=== PATIENT | female | born 1995 | race Caucasian/White ===

== ENCOUNTER 2020-07-02 16:12 | Outpatient (REF) | payer OTHER, MEDICAID, SELFPAY | END 2020-07-02 16:13 | disposition home or self-care (01) | LOC: HO.LAB 16:12 | PROVIDERS: Visit Provider Internal Medicine | DX: Z20.828 Contact with and (suspected) exposure to other viral communicable diseases (principal) | CPT/HCPCS: C9803; U0003 ==

== ENCOUNTER 2021-01-24 01:22 | Emergency (ER) | payer OTHER, SELFPAY ==
[2021-01-24 01:32] VITALS: BP 113/73; PULSE 110; RESP 18; TEMP 36.7; O2SAT 98; BMI 27.4
--- NOTE | 2021-01-24 01:43 | ED.URI ---
HPI - URI/Sore Throat General Chief Complaint: Upper Respiratory Symptoms Stated Complaint: flu like symptoms, ear pain for about week Time Seen by Provider: 01/24/21 01:28 Source: patient Mode of arrival: ambulatory Limitations: no limitations History of Present Illness MD elicited complaint: cough, sore throat, nasal congestion and sinus pain Pertinent past history: asthma Onset (ago): week(s) (1) Consistency: constant Severity: mild Able to tolerate fluids by mouth: Yes Exacerbating factors: swallowing Relieving factors: nothing Associated symptoms: chills, nasal congestion, sore throat and cough Treatments prior to arrival: none Related Data Previous Rx's Medication Instructions Recorded amoxicillin 500 mg PO BID 7 Days #14 cap 01/24/21 Allergies Allergy/AdvReac Type Severity Reaction Status Date / Time No Known Allergies Allergy Verified 01/24/21 01:42 Review of Systems Review of Systems: Constitutional : No Fever, No Chills ENT/Mouth : No Hoarseness, pos sore throat, No Rhinorrhea, pos nasal congestion Eyes: No Redness, No Discharge, No Vision Changes Cardiovascular : No Chest Pain, positive SOB, positive Dyspnea on Exertion, No Edema Respiratory : positive Cough, No Sputum, no Wheezing Gastrointestinal : No Nausea, No Vomiting, No Diarrhea, No abdominal Pain Genitourinary : No Dysuria, No Hematuria Musculoskeletal : No joint pain, No Myalgias Skin : No rash Neuro : No Weakness, No Numbness, No Headache Psych : No anxiety, depression Heme/Lymph: No Bruising, No Bleeding Endocrine : No Polyuria, No Polydipsia All other systems reviewed and are negative [facility] Past Medical History Attestation statement: The following information was validated with the patient. Medical History Asthma No known health problems Social History Social History (Updated 01/24/21 @ 02:06 by Jamee Gann DO) Patient Tobacco Use Status: Never used Tobacco Use of substances other than those prescribed or required for medical reasons: No Advance Directives: No Advance Directives Information Provided: No Patient : Yes Physical Exam Vital Signs: Vital Signs: Last Vital Signs Temp 98.3 F 01/24/21 02:00 Pulse 94 01/24/21 02:00 Resp 16 01/24/21 02:00 BP 114/70 01/24/21 02:00 Pulse Ox 98 01/24/21 02:00 Body Mass Index 27.4 Appearance: Alert. Oriented X3. No acute distress. Eyes: Pupils equal, round and reactive to light. ENT: Pharynx mild generalized erythema, nasal congestion, bilateral maxillary sinus ttp Neck: Normal inspection. Neck supple. CVS: Normal heart rate and rhythm. Pulses normal. Respiratory: No respiratory distress. Breath sounds slightly diminished throughout Abdomen: Soft and nontender. Skin: Skin warm and dry. Normal skin color. Normal skin turgor. Extremities: No lower extremity edema. No calf ttp Neuro: Oriented X 3. No motor deficit. No sensory deficit. MDM - URI/Sore Throat MDM Narrative Medical decision making narrative: 25 yo female hx of asthma remotely she is 31 weeks has no complaints but has URI symptoms, likely sinusitis, COVID/strep ordered, INH given prior hx of asthma and she is slightly diminished, discussed symptom control with tylenol/benadryl, PO amoxicillin and INH for home use Lab Data Labs: Lab Results 01/24/21 01/24/21 Range/Units 01:55 01:55 COVID-19 (MERY) Negative (Negative) COVID-19 Clin Com See Note S. pyogenes GrpA BENJI Negative (Negative) Discharge Plan Discharge Clinical Impression: Upper respiratory infection Qualifiers: URI type: unspecified viral URI Qualified Code(s): J06.9 - Acute upper respiratory infection, unspecified Sinusitis Qualifiers: Sinusitis location: maxillary Chronicity: acute Recurrence: non-recurrent Qualified Code(s): J01.00 - Acute maxillary sinusitis, unspecified Patient Disposition: Home, Self-Care Instructions: Sinusitis (ED), Upper Respiratory Infection (ED) Additional Instructions: return to ED for any worsening symptoms or concerns tylenol and benadryl are safe in YOU CAN USE THE INHALER 2 PUFFS EVERY 4 HOURS NEEDED FOR COUGH OR WHEEZING NEGATIVE FOR COVID Prescriptions: New amoxicillin 500 mg capsule 500 mg PO BID 7 Days Qty: 14 RF: 0 Referrals: Physician,None [Primary Care Provider] - 2 days (if not better) Stand Alone Forms: Work/School Release
[2021-01-24 02:00] VITALS: BP 114/70; PULSE 94; RESP 16; TEMP 36.8; O2SAT 98
[2021-01-24] MEDS: Albuterol Sulfate 90 MCG 8 GM INHALER 2 PUFF INHALE (02:06)
[2021-01-24] MEDS: Amoxicillin 500 MG CAPSULE PO (02:07)
[2021-01-24 02:08] LABS: IDNOW Serial# 9DD0AD1C; Strep A Nucleic Acid Negative (Negative)
[2021-01-24 02:17] LABS: COVID-19 Test Negative (Negative)
== END 2021-01-24 02:29 | disposition home or self-care (01) ==
PROVIDERS: Emergency Provider Emergency Medicine
DX: J01.00 Acute maxillary sinusitis, unspecified (principal); R05 Cough; Z20.822 Contact with and (suspected) exposure to COVID-19
CPT/HCPCS: 36415; 87635; 87651; 99283

== ENCOUNTER 2021-03-24 13:42 | Emergency (ER) | payer OTHER, SELFPAY ==
[2021-03-24 14:41] VITALS: BP 121/81; PULSE 109; RESP 18; TEMP 37; O2SAT 99; BMI 27.9
[2021-03-24 14:58] LABS: COVID-19 Test Positive (Negative); IDNOW Serial# 9DD0AD1C
--- NOTE | 2021-03-24 16:26 | ED.URI ---
HPI - URI/Sore Throat General Chief Complaint: Upper Respiratory Symptoms Stated Complaint: SORE THROAT Time Seen by Provider: 03/24/21 15:50 Source: patient Mode of arrival: ambulatory Limitations: no limitations History of Present Illness HPI Narrative: 25 y/o who is 40 w 1d presents to the ER with sore throat that started 2 days ago as well as some mild body aches, nasal congestion, and SOB that started today. She feels like she has a sinus infection as she has had them before. She had some left upper chest pain when she was sneezing earlier but none now. She is not coughing, has no fever, chills, N/V/D. She was around her mother last week who just tested positive for COVID-19. MD elicited complaint: sore throat, nasal congestion and sinus pain Onset (ago): day(s) (2) Consistency: intermittent Severity: mild Pain scale (0-10): 3 Description of mucous: clear Able to tolerate fluids by mouth: Yes Exacerbating factors: nothing Relieving factors: nothing Context: sick contacts Associated symptoms: denies other symptoms Treatments prior to arrival: none Related Data Previous Rx's Medication Instructions Recorded amoxicillin 500 mg capsule 500 mg PO BID 7 Days #14 cap 01/24/21 Allergies Allergy/AdvReac Type Severity Reaction Status Date / Time No Known Allergies Allergy Verified 01/24/21 01:42 Review of Systems Review of Systems: Constitutional: No Fever, No Chills ENT/Mouth: + sore throat, + Rhinorrhea, No Swallowing Difficulty Eyes: No Eye Pain, No Swelling, No Redness Cardiovascular: + Chest Pain, + SOB, No Orthopnea, No Edema Respiratory: No Cough, No Sputum, No Wheezing, No dyspnea Gastrointestinal: No Nausea, No Vomiting, No Diarrhea, No abdominal Pain, No Hematochezia, No Melena Genitourinary: No Dysuria, No Urinary Frequency, No Hematuria Musculoskeletal: No joint pain, + Myalgias Skin: No Skin Lesions, No rash Neuro: No Weakness, No Numbness, No Dizziness, + Headache Psych: + Anxiety/Panic, No Depression Heme/Lymph: No Bruising, No Lymphadenopathy Endocrine: No Polyuria, No Polydipsia PMFSH Past Medical History Medical History Asthma No known health problems Social History Social History (Updated 01/24/21 @ 02:06 by Jamee Gann DO) Patient Tobacco Use Status: Never used Tobacco Advance Directives: Yes Advance Directives Information Provided: No Advance Directives on File: No Physical Exam Vital Signs: Vital Signs: Last Vital Signs Temp 98.6 F 03/24/21 14:41 Pulse 109 H 03/24/21 14:41 Resp 18 03/24/21 14:41 BP 121/81 03/24/21 14:41 Pulse Ox 99 03/24/21 14:41 Body Mass Index 27.9 Appearance: Alert. Oriented X3. No acute distress. Eyes: Pupils equal, round and reactive to light. ENT: Pharynx normal. Neck: Normal inspection. Neck supple. CVS: Tachycardic, regular rate and rhythm. Pulses normal. Respiratory: No respiratory distress. Breath sounds normal. Abdomen: Gravid uterus to level of the ribs, non-tender +BS x4 Skin: Skin warm and dry. Normal skin color. Normal skin turgor. No rashes. Extremities: No lower extremity edema. No calf tenderness Neuro: Oriented X 3. No motor deficit. No sensory deficit. Course Course Course Narrative: 25 y/o 40 week female presenting with URI symptoms in the setting of known COVIDF exposure. She is slightly tachcardic on arrival HR 109. SPO2 99-100% no difficulty breathing or SOB. She appears well. She has no chest pains. She is COVID Positive. Spoke to her OB on from [place] on the phone in the room with the patient. Induction was tentatively planned for . If she is feeling better tomorrow they will move it up. She remained with SpO2 100% with ambulation here. Not concerned about the tachycardia as she is not sustaining above 120. Doubt PE at this time. She is stable for discharge home with close OB follow up. She agrees with plan. MDM - URI/Sore Throat Lab Data Labs: Lab Results 03/24/21 Range/Units 14:46 COVID-19 (MERY) Positive A (Negative) COVID-19 Clin Com See Note Discharge Plan Discharge Clinical Impression: COVID Patient Disposition: Home, Self-Care Instructions: COVID-19 (Coronavirus Disease 2019) (ED) Additional Instructions: You were found to be COVID-19 POSITIVE today. Your exam & oxygen levels were normal. Rest. Drink plenty of fluids. Do not go out in public for the next 10 days (except to delivery your baby!) Take over the Tylenol as needed. Follow up with your doctor this week. If you shortness of breath worsens , if you develop difficulty breathing or any other concerning symptom call 911 or go to [facility] ER right away for further evaluation. Prescriptions: No Action amoxicillin 500 mg capsule 500 mg PO BID 7 Days Qty: 14 RF: 0
[2021-03-24 16:40] VITALS: BP 129/87; PULSE 95; RESP 18; TEMP 36.9; O2SAT 100
== END 2021-03-24 16:47 | disposition home or self-care (01) ==
PROVIDERS: Emergency Provider Emergency Medicine
DX: O98.513 Other viral diseases complicating pregnancy, third trimester (principal); U07.1 COVID-19; Z3A.40 40 weeks gestation of pregnancy
CPT/HCPCS: 36415; 87635; 99283

== ENCOUNTER 2021-04-05 00:43 | Emergency (ER) | payer OTHER, SELFPAY ==
--- NOTE | ~2021-04-05 | XR_ITS ---
EXAMINATION: XR CHEST CLINICAL INFORMATION: Cough, Covid positive COMPARISON: None TECHNIQUE: Frontal view of the chest was obtained. FINDINGS: Lung volumes are symmetric. Mild patchy bibasilar opacities are noted. No evidence of pneumothorax or pleural effusion. The cardiomediastinal contour is unremarkable. No acute osseous findings are seen. XR/XR chest 1V IMPRESSION: Mild patchy bibasilar opacities suspicious for sequelae of Covid infection.
[2021-04-05 01:25] VITALS: BP 141/91; PULSE 85; RESP 18; TEMP 36.5; O2SAT 100; BMI 26.6
--- NOTE | 2021-04-05 02:20 | ED.GENADULT ---
HPI - General Adult General Chief complaint: General Medical Stated complaint: Cough/Sob/Chest tightness Time Seen by Provider: 04/05/21 02:20 Source: patient Mode of arrival: ambulatory Limitations: no limitations History of Present Illness HPI narrative: Patient COVID positive since 03/24 complaining of chest tightness shortness of breath saturating 100% on room air also complaining of right lower 3rd molar toothache with history of cavities no loss of taste sensation no chest pain Related Data Previous Rx's Medication Instructions Recorded amoxicillin 500 mg capsule 500 mg PO BID 7 Days #14 cap 01/24/21 amoxicillin 875 mg-potassium 1 tab PO BID #20 tab 04/05/21 clavulanate 125 mg tablet (Augmentin) dexamethasone 6 mg tablet 6 mg PO DAILY #7 tab 04/05/21 (Decadron) Allergies Allergy/AdvReac Type Severity Reaction Status Date / Time No Known Allergies Allergy Verified 01/24/21 01:42 Review of Systems Review of Systems: Yes all other systems are reviewed and are negative PMFSH Past Medical History Medical History Asthma No known health problems Social History Social History Patient Tobacco Use Status: Never used Tobacco Advance Directives: No Patient : No ( DELIVERED ON 03/30) Physical Exam Vital Signs: Vital Signs: Last Vital Signs Temp 97.7 F 04/05/21 01:25 Pulse 85 04/05/21 01:25 Resp 18 04/05/21 01:25 BP 141/91 H 04/05/21 01:25 Pulse Ox 100 04/05/21 01:25 Body Mass Index 26.6 Appearance: Alert. Oriented X3. No acute distress. Eyes: PERRLA, No Nystagmus ENT: Pharynx normal. Oral Mucosa moist dental fillings with tenderness right lower 3rd molar Neck: Normal inspection. Neck supple. CVS: Normal heart rate and rhythm. Pulses normal. Respiratory: No respiratory distress. Equal air entry bilateral, no wheezing/rales/rhonchi Abdomen: Soft and nontender. Bowel sounds are present, no mass palpable, Skin: Skin warm and dry. Normal skin color. Normal skin turgor. Extremities: No lower extremity edema. No calf tenderness Neuro: Oriented X 3. Medical Decision Making MDM Narrative Medical decision making narrative: Patient chest x-ray showed diffuse infiltrate right lower lobe will start on Decadron will give Augmentin for tooth infection. Advised to follow with PCP patient is saturating 100% on room air Discharge Plan Discharge Clinical Impression: COVID, Dental caries Patient Disposition: Home, Self-Care Instructions: Toothache (ED), COVID-19 (Coronavirus Disease 2019) (ED) Additional Instructions: Social distancing as advised Antibiotic and Decadron as prescribed Report to the ER if increased shortness of breath Prescriptions: New dexamethasone [Decadron] 6 mg tablet 6 mg PO DAILY Qty: 7 RF: 0 amoxicillin-pot clavulanate [Augmentin] 875-125 mg tablet 1 tab PO BID Qty: 20 RF: 0 No Action amoxicillin 500 mg capsule 500 mg PO BID 7 Days Qty: 14 RF: 0
[2021-04-05] MEDS: Amoxicillin/Potassium Clav 875 MG TABLET PO (02:42)
[2021-04-05] MEDS: traMADoL HCL 50 MG TABLET PO (02:42)
[2021-04-05] MEDS: dexAMETHasone 6 MG TABLET PO (03:27)
== END 2021-04-05 03:30 | disposition home or self-care (01) ==
PROVIDERS: Emergency Provider Internal Medicine
DX: U07.1 COVID-19 (principal); K02.9 Dental caries, unspecified; R05 Cough; Z79.899 Other long term (current) drug therapy
CPT/HCPCS: 71045; 99283; J8540

== ENCOUNTER 2022-06-25 22:02 | Emergency (ER) | payer OTHER, SELFPAY ==
[2022-06-25 22:09] VITALS: BP 119/71; PULSE 109; RESP 20; TEMP 37.1; O2SAT 99; BMI 26.9
[2022-06-25 22:44] LABS: Strep A Nucleic Acid Negative (Negative)
[2022-06-25 23:15] LABS: Influenza A PCR POSITIVE (Negative); Influenza B PCR NEGATIVE (Negative); Resp Syncy Virus RNA Qual PCR NEGATIVE (Negative); SARS COV2 PCR INHOUSE NEGATIVE (Negative)
--- NOTE | 2022-06-25 23:26 | ED.URI ---
HPI - URI/Sore Throat General Chief Complaint: Upper Respiratory Symptoms Stated Complaint: Cough, Diff breathing, / rib pain Time Seen by Provider: 06/25/22 22:42 History of Present Illness HPI Narrative: Patient is a 26-year-old female presents today with coughing congestion upper respiratory symptoms has been ongoing for about 3 days. Positive generalized malaise. Positive headache. Positive sore throat. Patient thinks she is unsure how far no abdominal pain. Related Data Previous Rx's Medication Instructions Recorded amoxicillin 500 mg capsule 500 mg PO BID 7 days #14 caps 01/24/21 amoxicillin 875 mg-potassium 1 tab PO BID #20 tabs 04/05/21 clavulanate 125 mg tablet (Augmentin) dexamethasone 6 mg tablet 6 mg PO DAILY #7 tabs 04/05/21 (Decadron) Allergies Allergy/AdvReac Type Severity Reaction Status Date / Time No Known Allergies Allergy Verified 01/24/21 01:42 Review of Systems Review of Systems: Positive coughing congestion upper respiratory symptoms Positive generalized malaise No abdominal Yes all other systems are reviewed and are negative [facility] Past Medical History Attestation statement: The following information was validated with the patient. Medical History Asthma No known health problems Social History Social History Patient Tobacco Use Status: Never used Tobacco Advance Directives: No Advance Directives Information Provided: No Physical Exam Vital Signs: Vital Signs: Last Vital Signs Temp 98.8 F 06/25/22 22:09 Pulse 109 H 06/25/22 22:09 Resp 20 06/25/22 22:09 BP 119/71 06/25/22 22:09 Pulse Ox 99 06/25/22 22:09 O2 Del Method 06/25/22 22:09 BMI result Body Mass Index 26.9 Appearance: Alert. Oriented X3. No acute distress. Eyes: Pupils equal, round and reactive to light. ENT: Pharynx normal. Neck: Normal inspection. Neck supple. No lymph nodes noted. No crepitus CVS: Normal heart rate and rhythm. Pulses normal. Normal S1 and S2 Respiratory: No respiratory distress. Breath sounds normal. No Wheezing. No rales Abdomen: Soft and nontender. No rigidity. No distention. good BS x4 Skin: Skin warm and dry. Normal skin color. Normal skin turgor. Extremities: No lower extremity edema. Neurovascular intact to all extremities. No Lacerations. No Rash Neuro: Oriented X 3. No motor deficit. No sensory deficit. Moving all extermities. No slurred speech Medical Decision Making Medical Decision Making MDM Narrative: Well-appearing O2 sat 98% on air. Flu positive. Likely the cause of patient's symptoms. Will have patient drink lots of fluids. Given symptoms greater than 48 hours does not think Tamiflu would help. Will discharge patient home. No abdominal pain. Patient will need further workup for her possible . Differential Diagnoses: Differential diagnosis (Flu COVID RSV, other viral illness) Consideration of admission/observation: Consideration of Admission/Observation (No need to admit as patient's O2 sat 98% on room air) Lab Attestation: I reviewed the patient's lab results. (Flu is positive) Tests considered but not performed: Tests Considered But Not Performed (No need for chest x-rays patient's O2 sats normal) Prescription medication was considered but ultimately not given after discussion with patient/family. (e.g., pain medication, antiviral, antibiotic): Prescriptions considered but not given (No need for Tamiflu as patient had symptoms for 3 days) Discharge Plan Discharge Clinical Impression: Influenza Patient Disposition: Home, Self-Care Instructions: Influenza (ED) Prescriptions: No Action amoxicillin 500 mg capsule 500 mg PO BID 7 Days Qty: 14 0RF dexamethasone [Decadron] 6 mg tablet 6 mg PO DAILY Qty: 7 0RF amoxicillin-pot clavulanate [Augmentin] 875-125 mg tablet 1 tab PO BID Qty: 20 0RF Referrals: Physician,Unknown J [Primary Care Provider] - (Please drink a lot of fluids. Tylenol for fever. Close follow-up with your doctor for your influenza and your possible )
== END 2022-06-26 00:32 | disposition home or self-care (01) ==
PROVIDERS: Emergency Provider Emergency Medicine Emergency Medical Services
DX: J10.1 Influenza due to other identified influenza virus with other respiratory manifestations (principal); R05.9 Cough, unspecified; R06.02 Shortness of breath; R07.81 Pleurodynia; Z20.822 Contact with and (suspected) exposure to COVID-19; Z79.899 Other long term (current) drug therapy
CPT/HCPCS: 0241U; 36415; 87651; 99282; 99283

== ENCOUNTER 2024-01-11 11:41 | Emergency (ER) | payer OTHER, SELFPAY ==
--- NOTE | ~2024-01-11 | XR_ITS ---
EXAMINATION: XR LUMBOSACRAL SPINE CLINICAL INFORMATION: Low back pain COMPARISON: None available. TECHNIQUE: Three views of the lumbosacral spine. FINDINGS: Mild disc space narrowing and slight retrolisthesis at L4-L5. No acute fracture. Normal lumbar lordosis. Slight scoliotic positioning. XR/XR lumbar spine 2-3V IMPRESSION: Mild L4-L5 disc space narrowing and slight retrolisthesis. No acute fracture.
[2024-01-11 11:53] VITALS: BP 132/95; PULSE 100; RESP 20; TEMP 36.6; O2SAT 100; BMI 28.4
--- NOTE | 2024-01-11 11:54 | ED.GENADULT ---
HPI - General Adult General Chief complaint: Back Pain/Injury Stated complaint: Lower back pain radiating to legs Time Seen by Provider: 01/11/24 13:12 Source: patient, RN notes reviewed and old records reviewed Mode of arrival: ambulatory Limitations: no limitations History of Present Illness ED Provider: LAYLA MARKS PA-C HPI narrative: 28 year old female with pmhx significant for siatica presents to the ED today for evaluation of acute on chronic low back pain x weeks. Reports previously being diagnosed with sciatica and has been seeing a chiropractor for this. Yesterday while driving in the car, reports worsening low back pain. Pain now radiating down bilateral lower extremities. Pain is worse with movement. She has been taking Tylenol at home with minimal relief, prompting her to come to the ED today. Requesting note for work. Denies saddle anesthesia, bowel or bladder incontinence or retention, numbness/tingling/weakness of the lower extremities, fever, chills, dysuria, hematuria. Denies trauma or injury. Denies history of spinal surgeries. Denies history of IV drug use. Related Data Previous Rx's ?Medication ?Instructions ?Recorded amoxicillin 500 mg capsule 500 mg PO BID 7 days #14 caps 01/24/21 amoxicillin 875 mg-potassium 1 tab PO BID #20 tabs 04/05/21 clavulanate 125 mg tablet (Augmentin) dexamethasone 6 mg tablet 6 mg PO DAILY #7 tabs 04/05/21 (Decadron) cyclobenzaprine 5 mg tablet 5 mg PO Q8H #10 tabs 01/11/24 lidocaine 5 % topical patch 1 patch topical DAILY #15 ea 01/11/24 (Lidoderm) naproxen 500 mg tablet 500 mg PO Q8-12H PRN pain (scale 01/11/24 score 1-3) #20 tabs Allergies Allergy/AdvReac Type Severity Reaction Status Date / Time No Known Allergies Allergy Verified 01/11/24 11:56 Review of Systems Review of Systems: Constitutional: No fever, chills, fatigue, night sweats, weight changes ENT/Mouth: No ear pain, hearing loss, nasal congestion, sinus pain, rhinorrhea, sore throat Eyes: No eye pain, swelling, redness, vision changes, discharge Cardio: No chest pain, palpitations, PINEDA, orthopnea, peripheral edema Pulm: No SOB, cough, sputum, wheezing, dyspnea, hemoptysis GI: No nausea, vomiting, hematemesis, abdominal pain, diarrhea, constipation, hematochezia, melena : No irregular bleeding, dysuria, frequency, urgency, hesitancy, hematuria, flank pain, urinary flow changes, urinary incontinence or retention MSK: +back pain, No neck pain, joint pain, myalgias Skin: No lesions, rashes Neuro: No weakness, numbness, paresthesias, LOC, dizziness, headache All other systems reviewed and are negative. [facility] [place] Past Medical History Attestation statement: The following information was validated with the patient. Source: old records reviewed and nursing notes reviewed Medical History Asthma No known health problems Social History Social History Patient Tobacco Use Status: Never used Tobacco Advance Directives: No Do you have a plan to hurt others: No Plan Patient : No Physical Exam ED Vital Signs: Vital Signs - 24 hr 01/11/24 11:53 Temperature 97.8 F Pulse Rate 100 Respiratory Rate 20 Blood Pressure 132/95 H Pulse Oximetry 100 Oxygen Delivery Method Room Air BMI result Body Mass Index 28.4 Patient is slightly hypertensive, vitals otherwise WNL Const General: cooperative, healthy appearing, comfortable and no acute distress Orientation/consciousness: patient oriented x3 Limitations: no limitations [facility] Head: Yes normal to inspection, Yes No palpable skull fracture present, Yes normocephalic and Yes atraumatic Eyes General: appearance normal, both eyes and all related structures Pupils: Equal, round and reactive pupils present EOM: EOMs intact bilaterally Neck Other: No cervical midline spinous tenderness or step-off deformity Neck: Yes normal visual inspection, Yes full ROM and Yes no meningeal signs Chest Chest palpation & inspection: normal inspection of the chest and normal palpation of entire chest wall Resp Effort & Inspection: normal respiratory effort and able to speak in complete sentences Auscultation: clear to auscultation bilaterally Cardio Rate: regular rate Rhythm: regular rhythm GI Inspection: Yes normal to inspection Palpation (GI): Soft to palpation and nontender General: Yes no CVA tenderness Back/Spine/Pelvis Other: No midline spinous tenderness or step-off deformity. No paraspinal muscle tenderness to palpation. No palpable mass, warmth, fluctuance. Back: no CVA tenderness Skin General skin exam: no rashes or lesions noted Neuro Other: Strength 5/5 intact throughout.? No saddle anesthesia.? Sensation intact to light touch.? Neurovascular intact distally.?2+ Patellar tendon DTRs intact bilaterally General: patient oriented x3, gait normal and no meningeal signs Cranial nerves: Yes Equal, round and reactive pupils present Gait exam (Neuro): Normal gait present Extrem General: Yes normal to inspection Course Course Course Narrative: This is a rapid medical exam performed by Francy Calix NP: Additional HPI, ROS, PE not included below will be deferred to primary provider. Patient is a 28-year-old female presenting to the ED with complaint of severe lower back pain radiating down both legs. Has been diagnosed with sciatica previously. Denies saddle anesthesia or bowel/bladder incontinence, fever. Denies fall or other trauma. Plan: Upreg, xray Reevaluation(s) Reevaluation #1: 1413-- urine negative for infection or . No blood. No concern for urinary tract infection or possible renal colic. X-ray lumbar spine shows mild L4-L5 disc space narrowing with slight retrolisthesis without acute fracture. I did discuss these results with patient. She has been treated with Toradol and lidocaine patch in the ED today. Advised PCP follow-up as she will likely require physical therapy. Will also provide her with neuro/spine referral. Patient has remained stable throughout ED visit today. Discussed worrisome signs and symptoms and when to return to the ED. All questions answered at this time. Patient is agreeable with disposition and stable for discharge. Medications Administered Discontinued Medications Generic Name Dose Route Start Last Admin Trade Name Freq PRN Reason Stop Dose Admin Ketorolac Tromethamine 30 mg 01/11/24 14:03 01/11/24 14:11 Ketorolac Tromethamine 30 Mg/Ml Vial IM 01/11/24 14:04 30 mg ONCE ONE Administration Lidocaine 1 patch 01/11/24 14:03 01/11/24 14:10 Lidocaine 4 % Patch Adh..Patch TRANSDERMA 01/11/24 14:04 1 patch ONCE ONE Administration Protocol Medical Decision Making Medical Decision Making MDM Narrative: 28 year old female with pmhx significant for siatica presents to the ED today for evaluation of acute on chronic low back pain x weeks. Patient is slightly hypertensive to 132/95, vitals otherwise WNL. Afebrile. She is nontoxic-appearing and in no acute distress. On exam, no midline spinous tenderness or step-off deformity. No paraspinal muscle tenderness to palpation. No palpable spasm, mass, warmth. Sensation intact to light touch throughout. 2+ patellar tendon DTRs bilaterally. Ambulating with steady gait. Neurovascularly intact distally. No CVAT bilaterally. Skin warm, dry, intact. Differential diagnosis includes MSK sprain, MSK strain, fracture, subluxation, disc herniation, sciatica, contusion. Lower suspicion for nephrolithiasis, urinary tract infection, renal colic. Unlikely cord compression, cauda equina, Guillain-Dalton, epidural abscess. Plan for imaging, UA, u preg, pain control, and re-evaluation. Differential Diagnosis Differential Diagnoses: The differential diagnosis associated with the presentation includes as above Admission/Observation Not indicated. Lab Data MDM Lab Attestation statement: I reviewed the patient's lab results. as above. Labs: Lab Results 01/11/24 01/11/24 Range/Units 13:38 13:39 Urine Color Yellow Urine Appearance Clear Urine pH 6.0 (5.0-9.0) Ur Specific [place] >= 1.030 H (1.005-1.025) Urine Protein Trace (Neg-Trace) mg/dL Urine Glucose (UA) Negative (Negative) mg/dL Urine Ketones Negative (Negative) mg/dL Urine Blood Negative (Negative) Urine Nitrite Negative (Negative) Ur Leukocyte Esterase Negative (Negative) Urine Test NEGATIVE (NEGATIVE) Independent Interpretation I performed an independent interpretation of an: Plain X-Ray Interpretation: X-ray lumbar spine without acute fracture, agree with radiologist's interpretation. Radiology Impression Discussion of test interpretation with radiology: I have reviewed the radiologist's reading. Radiologist Impression: EXAMINATION: XR LUMBOSACRAL SPINE CLINICAL INFORMATION: Low back pain COMPARISON: None available. TECHNIQUE: Three views of the lumbosacral spine. FINDINGS: Mild disc space narrowing and slight retrolisthesis at L4-L5. No acute fracture. Normal lumbar lordosis. Slight scoliotic positioning. XR/XR lumbar spine 2-3V IMPRESSION: Mild L4-L5 disc space narrowing and slight retrolisthesis. No acute fracture. External Record Review External record reviewed: Inpatient record Prescription Management I considered prescription management with: Pain Medication (Naproxen) and Other (Flexeril, lidocaine patch) Chronic Conditions Patient?s care impacted by: Other (Chronic back pain) Social Determinants Patient?s care significantly limited by Social Determinants of Health including: Other Social Determinant of Health Critical Care Time Critical Care Time Critical Care Time: No Discharge Plan Discharge Clinical Impression: Retrolisthesis of vertebrae Patient Disposition: Home, Self-Care Instructions: Lower Back Exercises (ED), Spondylolisthesis (ED) Additional Instructions: Your urine is negative for infection and . As discussed, xray of your lumbar spine shows slight retrolisthesis however there is no acute fracture. Please follow up with PCP as you may require physical therapy referral. You may also refer to low back exercises attached to your discharge paper work. Avoid bending, lifting, or twisting. Use ice several times per day for 20 minutes at a time for the next 48 hours and then change to heat. Flexeril is a muscle relaxer. Take this at night as it makes you drowsy. Do not drive, drink alcohol, or operate machinery while taking it. Naproxen is an anti-inflammatory / pain medication. Take with food. Do not take this with Ibuprofen. Lidoderm patches are numbing patches. Apply to painful areas. In addition you may take Tylenol at home. If your pain worsens, if you develop new numbness, tingling, weakness, loss of bowel or bladder function call 911 or return to the ER immediately for evaluation. Prescriptions: New cyclobenzaprine 5 mg tablet 5 mg PO Q8H Qty: 10 0RF naproxen 500 mg tablet 500 mg PO Q8-12H PRN (Reason: pain (scale score 1-3)) Qty: 20 0RF lidocaine [Lidoderm] 5 % adhesive patch,medicated 1 patch topical DAILY Qty: 15 0RF Rx Instructions: leave on most painful area for up to 12 hrs No Action amoxicillin 500 mg capsule 500 mg PO BID 7 Days Qty: 14 0RF dexamethasone [Decadron] 6 mg tablet 6 mg PO DAILY Qty: 7 0RF amoxicillin-pot clavulanate [Augmentin] 875-125 mg tablet 1 tab PO BID Qty: 20 0RF Referrals: [facility] [place] Group] [facility] [Provider Group] Stand Alone Forms: Work/School Release Print Language: Malawian
[2024-01-11 13:49] LABS: Appearance Urine Clear; Color Urine Yellow; Glucose Urine UA Negative (Negative); Leukocyte Esterase Urine Negative (Negative); Nitrite Urine Negative (Negative); Specific Gravity - Urine >= 1.030 (1.005-1.025); Urine Blood Negative (Negative); Urine Ketones Negative (Negative); Urine Protein Trace mg/dL (Neg-Trace)
[2024-01-11 13:51] LABS: UPreg QC Valid YES; Urine Pregnancy NEGATIVE (NEGATIVE)
[2024-01-11] MEDS: Lidocaine 4 % Patch ADH..PATCH 1 PATCH TRANSDERMA (14:10)
[2024-01-11] MEDS: Ketorolac Tromethamine 30 MG/ML VIAL IM (14:11)
== END 2024-01-11 14:21 | disposition home or self-care (01) ==
PROVIDERS: Physician Assistant Medical; Registered Nurse Emergency; Emergency Provider Emergency Medicine
DX: M43.16 Spondylolisthesis, lumbar region (principal); G89.29 Other chronic pain; M54.50 Low back pain, unspecified
CPT/HCPCS: 72100; 81003; 81025; 96372; 99283; 99284; J1885

== ENCOUNTER 2024-04-01 00:27 | Emergency (ER) | payer OTHER, SELFPAY ==
[2024-04-01 00:31] VITALS: BP 120/84; PULSE 89; RESP 20; TEMP 36.6; O2SAT 98; BMI 28.0
[2024-04-01 00:42] LABS: MANUAL DIFF FLAG NO
[2024-04-01 00:43] LABS: Basophils Absolute Auto 0.1 X10*3/uL (0.0-0.2); Basophils Percent Auto 0.7 % (0-2); Eosinophils Absolute Auto 0.3 X10*3/uL (0.0-0.4); Eosinophils Percent Auto 3.6 % (0-4); Hematocrit 32.8 % (37.0-47.0); Hemoglobin 10.2 g/dl (12.0-16.0); Imm Gran Abs Auto 0.01 X10*3/uL (0.00-0.03); Imm Gran Pct Auto 0.1 % (0.0-0.4); Lymphocytes Absolute Auto 2.4 X10*3/uL (1.2-4.9); Lymphocytes Percent Auto 33.2 % (20-40); Mean Corpuscular HGB Conc 31.1 g/dl (31.0-35.0); Mean Corpuscular Hemoglobin 23.9 pg (27.0-33.0); Mean Platelet Volume 11.6 fL (9.4-12.3); Monocytes Absolute Auto 0.7 X10*3/uL (0.1-1.2); Monocytes Percent Auto 9.1 % (2-11); Neutrophils Absolute Auto 3.8 x10*3/uL (2.0-8.3); Neutrophils Percent Auto 53.3 % (45-73); Platelet Count 300 X10*3/uL (160-400); Red Blood Count 4.26 X10*6/uL (4.20-5.50); Red Cell Distribution Width 14.5 % (11.0-16.0); White Blood Count 7.1 X10*3/uL (4.8-10.8)
[2024-04-01 01:10] LABS: Alanine Aminotransferase 13 U/L (0-31); Alkaline Phosphatase 47 U/L (39-117); Anion Gap 10 (12-20); Aspartate Amino Transferase 15 U/L (5-31); Bilirubin Total 0.3 mg/dL (0.0-1.0); Blood Urea Nitrogen 11 mg/dL (9-16); Calcium 9.7 mg/dL (8.4-10.2); Carbon Dioxide 24 mmol/L (22-29); Chloride 109 mmol/L (96-108); Estimated Glomerular Filt Rate > 60; Glucose Random 95 mg/dL (60-115); HCG Quantitative < 2 mIU/mL; Lipase 66 U/L (8-78); Sodium 139 mmol/L (135-145); Total Protein 7.2 g/dL (6.5-8.0)
[2024-04-01 03:47] VITALS: BP 111/71; PULSE 68; RESP 16; TEMP 36.9; O2SAT 100
[2024-04-01 06:18] VITALS: BP 110/75; PULSE 83; RESP 16; TEMP 36.6; O2SAT 98
--- NOTE | 2024-04-01 06:30 | ED_ITS ---
HPI - Abdominal Pain General Chief Complaint: Abdominal Pain Stated Complaint: abd pain Time Seen by Provider: 04/01/24 06:27 Source: patient Mode of arrival: ambulatory Limitations: no limitations History of Present Illness ED Provider: Tino Tena PA-C HPI narrative: 28-year-old female with no significant medical history presents to the ER for evaluation of severe, sharp, burning epigastric pain that started around 21:00. She states she was trying to go to sleep and could not because of the pain. It was worse when she laid flat. Radiate up into her chest. She developed nausea and vomited once. No history of abdominal pain like this before. No diarrhea. Denies chance of . Denies any known sick contacts. He states the pain resolved on its own in the last couple of hours. She has been able to sleep and lay flat without any issues. No more nausea or vomiting. MD elicited complaint: abdominal pain Pertinent past history: none Onset (ago): hour(s) Pain Consistency: now resolved Location: epigastric Severity: moderate Quality: sharp and burning Radiation: none Migration to: no migration Exacerbating factors: eating and other (Lying flat) Relieving factors: nothing Associated symptoms: nausea and vomiting Related Data Previous Rx's ?Medication ?Instructions ?Recorded amoxicillin 500 mg capsule 500 mg PO BID 7 days #14 caps 01/24/21 amoxicillin 875 mg-potassium 1 tab PO BID #20 tabs 04/05/21 clavulanate 125 mg tablet (Augmentin) dexamethasone 6 mg tablet 6 mg PO DAILY #7 tabs 04/05/21 (Decadron) cyclobenzaprine 5 mg tablet 5 mg PO Q8H #10 tabs 01/11/24 lidocaine 5 % topical patch 1 patch topical DAILY #15 ea 01/11/24 (Lidoderm) naproxen 500 mg tablet 500 mg PO Q8-12H PRN pain (scale 01/11/24 score 1-3) #20 tabs omeprazole 20 mg capsule,delayed 20 mg PO DAILY #14 caps 04/01/24 release Allergies Allergy/AdvReac Type Severity Reaction Status Date / Time No Known Allergies Allergy Verified 04/01/24 00:33 Review of Systems Review of Systems Yes all other systems are reviewed and are negative PMFSH Past Medical History Medical History Asthma No known health problems Social History Social History Patient Tobacco Use Status: Never used Tobacco Advance Directives: No Advance Directives Information Provided: Yes Physical Exam ED Vital Signs: Vital Signs - 24 hr 04/01/24 00:31 04/01/24 03:47 04/01/24 06:18 Temperature 97.8 F 98.4 F 97.9 F Pulse Rate 89 68 83 Respiratory Rate 20 16 16 Blood Pressure 120/84 111/71 110/75 Pulse Oximetry 98 100 98 Oxygen Delivery Method Room Air Room Air Room Air BMI result Body Mass Index 28.0 Appearance: Alert. Oriented X3. No acute distress. Head: normocephalic, atraumatic. Eyes: Pupils equal, round and reactive to light. ENT: Pharynx normal. No tonsillar swelling or exudate. Neck: Normal inspection. Neck supple. CVS: Normal heart rate and rhythm. Pulses normal. Respiratory: No respiratory distress. Breath sounds normal. Abdomen: Soft and nontender. +BS x4 Skin: Skin warm and dry. Normal skin color. Normal skin turgor. No rashes. Extremities: No lower extremity edema. No joint swelling. Neuro/psych: Oriented X 3. No motor deficit. No sensory deficit. CN II-XII intact. Normal speech and cognition. Medical Decision Making Medical Decision Making [facility] Narrative: 28-year-old otherwise healthy female presents to the ER for evaluation of an episode of severe, burning epigastric pain that started last night and has since resolved. She did vomit 1 time. No history of similar episodes. She had pus Félix last night region symptoms started several hours after that. Upon evaluation patient reports the pain has resolved. Her physical exam is unremarkable, nontender and soft abdomen. Her lab workup was reassuring with only some mild microcytic anemia, normal LFTs, normal lipase, negative UA. She was given GI cocktail and advised about probable GERD. Stable for discharge home with dietary modifications, ppi p.r.n.. Stable for discharge home Differential Diagnosis Differential Diagnoses: The differential diagnosis associated with the presentation includes GERD, gastritis, pancreatitis, cholecystitis, biliary colic Lab Data [facility] Lab Attestation statement: I reviewed the patient's lab results. Microcytic anemia, normal LFT 04/01/24 00:38 04/01/24 00:38 Labs: Lab Results 04/01/24 Range/Units 00:38 WBC 7.1 (4.8-10.8) X10*3/uL RBC 4.26 (4.20-5.50) X10*6/uL Hgb 10.2 L (12.0-16.0) g/dl Hct 32.8 L (37.0-47.0) % MCV 77.0 L (80.0-98.0) fL MCH 23.9 L (27.0-33.0) pg MCHC 31.1 (31.0-35.0) g/dl RDW 14.5 (11.0-16.0) % Plt Count 300 (160-400) X10*3/uL MPV 11.6 (9.4-12.3) fL Immature Gran % (Auto) 0.1 (0.0-0.4) % Neut % (Auto) 53.3 (45-73) % Lymph % (Auto) 33.2 (20-40) % [place] % (Auto) 9.1 (2-11) % Eos % (Auto) 3.6 (0-4) % Baso % (Auto) 0.7 (0-2) % Lymph # (Auto) 2.4 (1.2-4.9) X10*3/uL [place] # (Auto) 0.7 (0.1-1.2) X10*3/uL Eos # (Auto) 0.3 (0.0-0.4) X10*3/uL Baso # (Auto) 0.1 (0.0-0.2) X10*3/uL Abs Immat Gran (auto) 0.01 (0.00-0.03) X10*3/uL Absolute Neuts (auto) 3.8 (2.0-8.3) x10*3/uL Absolute Nucleated RBC 0.000 (0.0-0.012) X10*3/uL Nucleated RBC % (auto) 0.0 (0.0-0.2) /100WBC Sodium 139 (135-145) mmol/L Potassium 4.0 (3.3-5.1) mmol/L Chloride 109 H (96-108) mmol/L Carbon Dioxide 24 (22-29) mmol/L Anion Gap 10 L (12-20) BUN 11 (9-16) mg/dL Creatinine 0.73 (0.5-1.4) mg/dL Estim Creat Clear Calc 116.0 Estimated GFR > 60 Random Glucose 95 (60-115) mg/dL Calcium 9.7 (8.4-10.2) mg/dL Total Bilirubin 0.3 (0.0-1.0) mg/dL AST 15 (5-31) U/L ALT 13 (0-31) U/L Alkaline Phosphatase 47 (39-117) U/L Total Protein 7.2 (6.5-8.0) g/dL Albumin 4.0 (3.5-5.0) g/dL Lipase 66 (8-78) U/L Beta HCG, Quant < 2 mIU/mL Independent Historian Clinical information obtained from an independent historian. History obtained from or confirmed by: EMS Tests considered The following testing was considered but not selected: Considered ultrasound of the abdomen versus CT scan however her pain had resolved Prescription Management I considered prescription management with: Pain Medication Critical Care Time Critical Care Time Critical Care Time: No Discharge Plan Discharge Clinical Impression: GERD (gastroesophageal reflux disease) Qualifiers: Esophagitis presence: esophagitis presence not specified Qualified Code(s): K 21.9 - Gastro-esophageal reflux disease without esophagitis Patient Disposition: Home, Self-Care Instructions: Gastroesophageal Reflux Disease (DC) Additional Instructions: Your lab workup today was unremarkable. Your pain is most likely due to acid reflux. Start taking the prescribed medication as directed for this. Stick to a bland diet. Avoid foods high in acid, avoid alcohol and NSAID medications like Aleve, Motrin, Advil or ibuprofen. Follow up with your doctor as needed. Follow up with GI doctor if you symptoms persist despite dietary modifications and medication. If you develop new or worsening symptoms call 911 or come back to the ER for further evaluation. Prescriptions: New omeprazole 20 mg capsule,delayed release(DR/EC) 20 mg PO DAILY Qty: 14 0RF No Action amoxicillin 500 mg capsule 500 mg PO BID 7 Days Qty: 14 0RF dexamethasone [Decadron] 6 mg tablet 6 mg PO DAILY Qty: 7 0RF amoxicillin-pot clavulanate [Augmentin] 875-125 mg tablet 1 tab PO BID Qty: 20 0RF cyclobenzaprine 5 mg tablet 5 mg PO Q8H Qty: 10 0RF naproxen 500 mg tablet 500 mg PO Q8-12H PRN (Reason: pain (scale score 1-3)) Qty: 20 0RF lidocaine [Lidoderm] 5 % adhesive patch,medicated 1 patch topical DAILY Qty: 15 0RF Rx Instructions: leave on most painful area for up to 12 hrs Print Language: Samoan
[2024-04-01] MEDS: Ondansetron ODT 4 MG TAB.RAPDIS TRANSLINGU (06:53)
[2024-04-01] MEDS: PHENobarb/Hyoscy/Atropine/Scop 10 ML ELIXIR PO (06:53)
[2024-04-01] MEDS: Lidocaine HCl Viscous 2 % 15 ML SOLUTION MUCOUS MEM (06:53)
[2024-04-01] MEDS: Magnesium Hydrox/Alum Hydrox 30 ML ORAL.SUSP PO (06:53)
--- NOTE | 2024-04-01 07:28 | PC.NURSE ---
Addendum entered by Simi Castillo RN 04/01/24 07:30: now satting 95%. patient arousable to verbal stimuli, pupils equal and reactive. patient alert and oriented x3 but drowsy. patient skin noted to have various pacheco from IVDA, no open wounds noted. VSS, respirations equal and unlabored Original Note: patient noted to be satting 87%, patiient placed on 2l NC now satting 95
[2024-04-01 07:35] VITALS: BP 110/75; PULSE 83; RESP 16; TEMP 36.6; O2SAT 98
== END 2024-04-01 07:39 | disposition home or self-care (01) ==
PROVIDERS: Emergency Provider Emergency Medicine
DX: K21.9 Gastro-esophageal reflux disease without esophagitis (principal); R10.13 Epigastric pain
CPT/HCPCS: 36415; 80053; 83690; 84702; 85025; 99283; 99284

== ENCOUNTER 2024-10-14 17:27 | Emergency (ER) | payer OTHER, SELFPAY ==
[2024-10-14 18:00] VITALS: BP 107/71; PULSE 80; RESP 18; TEMP 37; O2SAT 100; BMI 27.3
--- NOTE | 2024-10-14 18:14 | ED_ITS ---
HPI - General Adult General Chief complaint: General Medical Stated complaint: fatigue,body aches,headache Time Seen by Provider: 10/14/24 20:53 Source: patient Limitations: no limitations History of Present Illness ED Provider: Myla Waterman PA-C HPI narrative: 29-year-old otherwise healthy female presents with viral related symptoms x2 days. Associated nausea vomiting, fatigue, generalized malaise, with a headache. 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 Denies fever or cough and cold symptoms. Related Data Previous Rx's ?Medication ?Instructions ?Recorded amoxicillin 500 mg capsule 500 mg PO BID 7 days #14 caps 01/24/21 amoxicillin 875 mg-potassium 1 tab PO BID #20 tabs 04/05/21 clavulanate 125 mg tablet (Augmentin) dexamethasone 6 mg tablet 6 mg PO DAILY #7 tabs 04/05/21 (Decadron) cyclobenzaprine 5 mg tablet 5 mg PO Q8H #10 tabs 01/11/24 lidocaine 5 % topical patch 1 patch topical DAILY #15 ea 01/11/24 (Lidoderm) naproxen 500 mg tablet 500 mg PO Q8-12H PRN pain (scale 01/11/24 score 1-3) #20 tabs omeprazole 20 mg capsule,delayed 20 mg PO DAILY #14 caps 04/01/24 release ondansetron HCl 4 mg tablet 4 mg PO Q8H PRN nausea and 10/14/24 vomiting #10 tabs Allergies Allergy/AdvReac Type Severity Reaction Status Date / Time No Known Allergies Allergy Verified 10/14/24 18:01 Review of Systems 2 Review of Systems: Yes all other systems are reviewed and are negative Constitutional: Constitutional: Reports fatigue, Denies fever(s), Reports headache(s) and Reports malaise ENT: Reports headache(s) Cardiovascular: Cardiovascular: Denies chest pain and Denies dyspnea Respiratory: Respiratory: Denies cough and Denies dyspnea Gastrointestinal: Gastrointestinal: Denies abdominal pain, Denies diarrhea, Reports nausea and Reports vomiting Neurologic: Reports headache(s) Endocrine: Endocrine: Reports fatigue PMFSH Past Medical History Attestation statement: The following information was validated with the patient. Medical History Asthma No known health problems Social History Social History Unable to assess alcohol history related to: Unknown Patient Tobacco Use Status: Never used Tobacco Use of substances other than those prescribed or required for medical reasons: Unknown Advance Directives: No Advance Directives Information Provided: No Physical Exam ED Vital Signs: Vital Signs - 24 hr 10/14/24 18:00 Temperature 98.6 F Pulse Rate 80 Respiratory Rate 18 Blood Pressure 107/71 Pulse Oximetry 100 Oxygen Delivery Method Room Air BMI result Body Mass Index 27.3 Const Other: Alert well-appearing Orientation/consciousness: patient oriented x3 Neck Neck: Yes full ROM and Yes no meningeal signs Resp Effort & Inspection: normal respiratory effort Cardio Other: Normal peripheral perfusion Skin Other: Warm dry no rash Neuro General: patient oriented x3, gait normal, no meningeal signs, no focal motor deficits and CN's II-XI intact bilaterally Psych Other: Cooperative Course Course Course Narrative: Medical screening exam performed. Please refer to detailed history, exam, evaluation, and management by primary provider. Generalized fatigue, nausea and vomiting. Reevaluation(s) Reevaluation #1: Patient improved after Toradol Zofran and IV fluids she is eager for discharge Time: 22:30 Medications Administered Discontinued Medications Generic Name Dose Route Start Last Admin Trade Name Freq PRN Reason Stop Dose Admin Sodium Chloride 1,000 mls @ 999 mls/hr 10/14/24 21:00 10/14/24 22:14 Ns IV 10/14/24 22:00 Infused .Q1H1M BRITTNEY Infusion Ketorolac Tromethamine 15 mg 10/14/24 20:53 10/14/24 21:01 Ketorolac Tromethamine 15 Mg/Ml Vial IVPUSH 10/14/24 20:54 15 mg ONCE ONE Administration Ondansetron HCl 4 mg 10/14/24 20:53 10/14/24 21:01 Ondansetron Hcl 4 Mg/2 Ml Vial IVPUSH 10/14/24 20:54 4 mg ONCE ONE Administration Medical Decision Making Medical Decision Making [facility] Narrative: 29-year-old otherwise healthy female presents with viral related symptoms x2 days. Associated nausea vomiting, fatigue, generalized malaise, with a headache. 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 Denies fever or cough and cold symptoms. No chronic issues History: Per patient I have considered the following differential diagnoses: Viral syndrome, meningitis, acute intra-abdominal pathology, Plan: Patient here with viral related symptoms, she has numerous sick contacts. We will be giving fluid Zofran and Toradol. Screening labs including a viral panel were obtained from triage everything is negative. Thought about meningitis given concurrent headache, however there were no meningeal signs on exam she is afebrile. With the nausea vomiting thought about acute intra- abdominal pathology, however she has no complaint of abdominal pain, imaging not warranted. I have independently reviewed the following tests: Labs: No leukocytosis, not anemic, no electrolyte abnormality, urine not infected, viral panel negative not Lab Data 10/14/24 18:21 10/14/24 18:21 Labs: Lab Results 10/14/24 10/14/24 10/14/24 Range/Units 18:21 18:23 21:21 WBC 7.0 (4.8-10.8) X10*3/uL RBC 4.64 (4.20-5.50) X10*6/uL Hgb 11.4 L (12.0-16.0) g/dl Hct 36.1 L (37.0-47.0) % MCV 77.8 L (80.0-98.0) fL MCH 24.6 L (27.0-33.0) pg MCHC 31.6 (31.0-35.0) g/dl RDW 15.1 (11.0-16.0) % Plt Count 293 (160-400) X10*3/uL MPV 11.6 (9.4-12.3) fL Immature Gran % (Auto) 0.1 (0.0-0.4) % Neut % (Auto) 62.0 (45-73) % Lymph % (Auto) 27.8 (20-40) % [place] % (Auto) 7.4 (2-11) % Eos % (Auto) 2.1 (0-4) % Baso % (Auto) 0.6 (0-2) % Lymph # (Auto) 2.0 (1.2-4.9) X10*3/uL [place] # (Auto) 0.5 (0.1-1.2) X10*3/uL Eos # (Auto) 0.2 (0.0-0.4) X10*3/uL Baso # (Auto) 0.0 (0.0-0.2) X10*3/uL Abs Immat Gran (auto) 0.01 (0.00-0.03) X10*3/uL Absolute Neuts (auto) 4.4 (2.0-8.3) x10*3/uL Absolute Nucleated RBC 0.000 (0.0-0.012) X10*3/uL Nucleated RBC % (auto) 0.0 (0.0-0.2) /100WBC Sodium 138 (135-145) mmol/L Potassium 4.1 (3.3-5.1) mmol/L Chloride 109 H (96-108) mmol/L Carbon Dioxide 26 (22-29) mmol/L Anion Gap 7 L (12-20) BUN 11 (9-16) mg/dL Creatinine 0.63 (0.5-1.4) mg/dL Estim Creat Clear Calc 127.1 Estimated GFR > 60 Random Glucose 99 (60-115) mg/dL Calcium 9.3 (8.4-10.2) mg/dL Total Bilirubin 0.4 (0.0-1.0) mg/dL AST 20 (5-31) U/L ALT 19 (0-31) U/L Alkaline Phosphatase 57 (39-117) U/L Total Protein 7.4 (6.5-8.0) g/dL Albumin 4.1 (3.5-5.0) g/dL Urine Color Yellow Urine Appearance Turbid Urine pH 7.5 (5.0-9.0) Ur Specific [place] 1.020 (1.005-1.025) Urine Protein Negative (Neg-Trace) mg/dL Urine Glucose (UA) Negative (Negative) mg/dL Urine Ketones Negative (Negative) mg/dL Urine Blood Negative (Negative) Urine Nitrite Negative (Negative) Ur Leukocyte Esterase Negative (Negative) Urine Test NEGATIVE (NEGATIVE) Influenza Type A (PCR) NEGATIVE (Negative) Influenza Type B (PCR) NEGATIVE (Negative) RSV RNA Qual (PCR) NEGATIVE (Negative) SARS-CoV-2 RNA (RT-PCR) NEGATIVE (Negative) Discharge Plan Discharge Clinical Impression: Acute viral syndrome Patient Disposition: Home, Self-Care Instructions: Viral Syndrome (ED) Additional Instructions: All of your screening labs including a viral panel were negative. You have yet another virus that has been circulating within the community. See home care instructions. For potential fever, headache body aches, you can alternate between [id number] Tylenol 1000 mg taken every 8 hours, with [id number] ibuprofen 600 mg taken every 6 hours with food. Follow up with your primary care provider as needed. Uses Zofran as needed for nausea. Prescriptions: New ondansetron HCl 4 mg tablet 4 mg PO Q8H PRN (Reason: nausea and vomiting) Qty: 10 0RF No Action amoxicillin 500 mg capsule 500 mg PO BID 7 Days Qty: 14 0RF dexamethasone [Decadron] 6 mg tablet 6 mg PO DAILY Qty: 7 0RF amoxicillin-pot clavulanate [Augmentin] 875-125 mg tablet 1 tab PO BID Qty: 20 0RF cyclobenzaprine 5 mg tablet 5 mg PO Q8H Qty: 10 0RF naproxen 500 mg tablet 500 mg PO Q8-12H PRN (Reason: pain (scale score 1-3)) Qty: 20 0RF lidocaine [Lidoderm] 5 % adhesive patch,medicated 1 patch topical DAILY Qty: 15 0RF Rx Instructions: leave on most painful area for up to 12 hrs omeprazole 20 mg capsule,delayed release(DR/EC) 20 mg PO DAILY Qty: 14 0RF Print Language: Danish
[2024-10-14 18:28] LABS: MANUAL DIFF FLAG NO
[2024-10-14 18:29] LABS: Basophils Percent Auto 0.6 % (0-2); Eosinophils Absolute Auto 0.2 X10*3/uL (0.0-0.4); Eosinophils Percent Auto 2.1 % (0-4); Hematocrit 36.1 % (37.0-47.0); Hemoglobin 11.4 g/dl (12.0-16.0); Imm Gran Abs Auto 0.01 X10*3/uL (0.00-0.03); Imm Gran Pct Auto 0.1 % (0.0-0.4); Lymphocytes Percent Auto 27.8 % (20-40); Mean Corpuscular HGB Conc 31.6 g/dl (31.0-35.0); Mean Corpuscular Hemoglobin 24.6 pg (27.0-33.0); Mean Corpuscular Volume 77.8 fL (80.0-98.0); Mean Platelet Volume 11.6 fL (9.4-12.3); Monocytes Absolute Auto 0.5 X10*3/uL (0.1-1.2); Monocytes Percent Auto 7.4 % (2-11); Neutrophils Absolute Auto 4.4 x10*3/uL (2.0-8.3); Platelet Count 293 X10*3/uL (160-400); Red Blood Count 4.64 X10*6/uL (4.20-5.50); Red Cell Distribution Width 15.1 % (11.0-16.0)
[2024-10-14 18:31] LABS: UPreg QC Valid YES; Urine Pregnancy NEGATIVE (NEGATIVE)
[2024-10-14 18:47] LABS: Alanine Aminotransferase 19 U/L (0-31); Albumin Level 4.1 g/dL (3.5-5.0); Alkaline Phosphatase 57 U/L (39-117); Anion Gap 7 (12-20); Aspartate Amino Transferase 20 U/L (5-31); Bilirubin Total 0.4 mg/dL (0.0-1.0); Blood Urea Nitrogen 11 mg/dL (9-16); Calcium 9.3 mg/dL (8.4-10.2); Carbon Dioxide 26 mmol/L (22-29); Chloride 109 mmol/L (96-108); Creatinine Clr Calc Pharmacy 127.1; Estimated Glomerular Filt Rate > 60; Glucose Random 99 mg/dL (60-115); Potassium 4.1 mmol/L (3.3-5.1); Sodium 138 mmol/L (135-145); Total Protein 7.4 g/dL (6.5-8.0)
[2024-10-14] MEDS: ondansetron HCL 4 MG/2 ML VIAL IVPUSH (21:01)
[2024-10-14] MEDS: Ketorolac Tromethamine 15 MG/ML VIAL IVPUSH (21:01)
[2024-10-14] MEDS: 0.9 % Sodium Chloride 1,000 ML 999 ML IV (21:02)
[2024-10-14 21:32] LABS: Appearance Urine Turbid; Color Urine Yellow; Glucose Urine UA Negative (Negative); Leukocyte Esterase Urine Negative (Negative); Nitrite Urine Negative (Negative); PH 7.5 (5.0-9.0); Urine Blood Negative (Negative); Urine Ketones Negative (Negative); Urine Protein Negative (Neg-Trace)
[2024-10-14 22:03] LABS: Influenza A PCR NEGATIVE (Negative); Influenza B PCR NEGATIVE (Negative); Resp Syncy Virus RNA Qual PCR NEGATIVE (Negative); SARS COV2 PCR INHOUSE NEGATIVE (Negative)
[2024-10-14 22:36] VITALS: BP 119/71; PULSE 77; RESP 18; TEMP 37; O2SAT 100
[2024-10-14 22:38] VITALS: BP 119/71; PULSE 77; RESP 18; TEMP 37; O2SAT 100
== END 2024-10-14 22:39 | disposition home or self-care (01) ==
PROVIDERS: Physician Assistant Medical; Emergency Provider Emergency Medicine
DX: B34.9 Viral infection, unspecified (principal); M79.10 Myalgia, unspecified site; R53.83 Other fatigue; R11.2 Nausea with vomiting, unspecified; R51.9 Headache, unspecified; Z03.818 Encounter for observation for suspected exposure to other biological agents ruled out
CPT/HCPCS: 0241U; 36415; 80053; 81003; 81025; 85025; 96361; 96374; 96375; 99284; J1885; J2405

== ENCOUNTER 2024-11-13 02:39 | Observation (INO) | payer OTHER, SELFPAY ==
[2024-11-13] VITALS (9 sets, daily range): BP systolic 99–119; BP diastolic 55–85; PULSE 73–91; RESP 16–20; TEMP 36–36.8; O2SAT 97–100; BMI 27.5
--- NOTE | ~2024-11-13 | CT_ITS ---
CLINICAL HISTORY: rlq pain ?appy CT abdomen pelvis without IV contrast. Comparison: None Findings: Prominent appendix measuring up to 8 mm, Mostly air distended. No apparent wall thickening or infiltration of the periappendiceal fat. No bowel obstruction. No features of diverticulitis. Small to moderate amount of free pelvic fluid possibly recent cyst rupture. Lung bases clear aside from mild scarring right middle lobe. Heart size normal. No pleural or pericardial effusion. Multiple noncalcified gallstones. No wall thickening, edema or biliary dilatation. Elongated right hepatic lobe favoring Wilner's lobe variant. Otherwise normal liver, spleen, pancreas and adrenals. Punctate nonobstructing midpole stone right kidney, mid, upper and lower pole left kidney. No obstructing stones or hydronephrosis. Normal caliber aorta. No enlarged mesenteric or retroperitoneal lymph nodes. Urinary bladder decompressed. Lobulated uterine contour suggesting possible fibroids not delineated on noncontrast exam. Bones and soft tissues unremarkable. IMPRESSION: Prominent 8 mm appendix without secondary features of appendicitis. If high clinical index of suspicion for appendicitis, follow-up CT with oral and IV contrast suggested. Small to moderate amount of free pelvic fluid, most often ovulatory in this age group. No bowel obstruction. Uncomplicated cholelithiasis. Bilateral nephrolithiasis without obstructing stones or hydronephrosis. This document has been electronically signed by: Raj Elena MD on 11/13/2024 05:15:08
--- NOTE | ~2024-11-13 | US_ITS ---
EXAMINATION: US PELVIS CLINICAL INFORMATION: Lower right pelvic pain COMPARISON: CT abdomen and pelvis performed today. TECHNIQUE: Ultrasound of the pelvis is performed using both transabdominal and transvaginal transducers along with Doppler. Transvaginal imaging is performed due to inadequate visualization transabdominally. FINDINGS: Uterus: The uterus is retroverted and retroflexed and measures 9.1 x 5.9 x 6.6 in The double wall endometrial thickness is 2.2 cm. The uterus is smooth in contour and has normal myometrial echogenicity. No visible fibroid. Incidental finding of a small nabothian cyst in the cervix Adnexa: Both ovaries are visualized. There is normal color flow to the adnexa. There is no ovarian torsion. Right ovary measures 4.9 x 3.5 x 4.1 cm. Volume 36.8 mL. There is anechoic cyst with central echogenicity likely corpus luteal cyst 2.2 x 2.3 cm. Left ovary measures 3.0 x 2.4 x 2.8 cm and volume 10.6 mL and appears unremarkable. There is small amount of free fluid in the pelvis . US/US pelvic and transvaginal IMPRESSION: Corpus luteal cyst right ovary. Small amount of free fluid in cul-de-sac. Retroverted uterus of both ovaries adjacent to each other in the cul-de-sac. Electronically signed by: Chago Ambrosio MD 11/13/2024 08:31 AM EDT
[2024-11-13 03:05] LABS: Basophils Absolute Auto 0.1 X10*3/uL (0.0-0.2); Basophils Percent Auto 0.6 % (0-2); Eosinophils Absolute Auto 0.2 X10*3/uL (0.0-0.4); Eosinophils Percent Auto 2.8 % (0-4); Hematocrit 35.3 % (37.0-47.0); Hemoglobin 11.2 g/dl (12.0-16.0); Imm Gran Abs Auto 0.02 X10*3/uL (0.00-0.03); Imm Gran Pct Auto 0.2 % (0.0-0.4); Lymphocytes Absolute Auto 2.5 X10*3/uL (1.2-4.9); Lymphocytes Percent Auto 30.6 % (20-40); MANUAL DIFF FLAG NO; Mean Corpuscular HGB Conc 31.7 g/dl (31.0-35.0); Mean Corpuscular Hemoglobin 24.5 pg (27.0-33.0); Mean Corpuscular Volume 77.1 fL (80.0-98.0); Mean Platelet Volume 11.7 fL (9.4-12.3); Monocytes Absolute Auto 0.6 X10*3/uL (0.1-1.2); Monocytes Percent Auto 7.4 % (2-11); Neutrophils Absolute Auto 4.8 x10*3/uL (2.0-8.3); Neutrophils Percent Auto 58.4 % (45-73); Platelet Count 276 X10*3/uL (160-400); Red Blood Count 4.58 X10*6/uL (4.20-5.50); Red Cell Distribution Width 14.6 % (11.0-16.0); White Blood Count 8.2 X10*3/uL (4.8-10.8)
--- OUTSIDE RECORDS SUMMARY | 2024-11-13 03:05 | XMS_ITS | Clinical Summary ---
Author Organization [address] Building Address [address] [place] [id number] Phone Care Team Providers Care Factory Representative Name Role Phone Elizabeth Morse MD Primary Care Provider [phone] Allergies No known active allergies Medications predniSONE (DELTASONE) 20 mg tablet 3 tab for 3 days,2 tab for 3 days,1 tab for 3 days 4 Active norethindrone-e thinyl estradiol-iron (MICROGESTIN FE1.5/30) 1.5 mg-30 mcg (21)/75 mg (7) per tablet Take 1 Tablet by mouth daily for 360 days. 4 03/02/20 25 Active naproxen (NAPROSYN) 500 mg tablet TAKE 1 TABLET BY MOUTH EVERY 8 TO 12 HOURS NEEDED FOR PAIN (SCALE SCORE 1-3) 4 Active lidocaine (LIDODERM) 5 % patch APPLY 1 PATCH TOPICALLY DAILY LEAVE ON MOST PAINFUL AREA FOR UP TO 12 HRS 4 Active ibuprofen (ADVIL,MOTRIN) 800 mg tablet Take 1 Tablet by mouth every 8 hours as needed for Pain. 3 Active ferrous sulfate 325 mg (65 mg elemental iron) tablet Take 1 Tablet by mouth daily. 3 Active cyclobenzaprine (FLEXERIL) 5 mg tablet Take 1 Tablet by mouth at bedtime as needed for Muscle spasms. 4 Active acetaminophen (TYLENOL) 500 mg tablet Take 1 Tablet by mouth every 6 hours as needed for Pain. 3 Active Active Problems Problem Noted Date Diagnosed Date Missed 07/02/2022 Overview (06/02/2024): Last Assessment & Plan: Discussed U/S findings that are definitive for missed given historical FHR on ED US and now absent. Reviewed etiology and incidence of miscarriage, and answered all patient questions. Gave emotional support. Reviewed management options of expectant management, medication management, or D&C, discussing the efficacy rates, risks, and benefits of each. The patient has decided to proceed with misoprostol. Rx sent for 600 PO x 1 and to repeat in 24 hours if no result. Anticipatory guidance given re: expected bleeding for 2-3 hours and resolution. To go to ED if persistent heavy bleeding over several hours. She will follow up in one week. Bleeding in early 06/30/2022 Overview (06/02/2024): Last Assessment & Plan: Will repeat US in 2 weeks. Likely viable, but counseled re: threatened . Continue to monitor and call for heavy bleeding. She is Rh positive as reviewed from outside records and does not require Rhogam. Polycystic ovaries 04/14/2022 Overview (06/02/2024): 02/04/2022 Pelvic sono for post coital bleeding IMPRESSION Unremarkable uterus. Enlarged ovaries with multiple follicular cyst. Possibility of polycystic ovarian syndrome should be considered. Immunizations Name Administration Dates Next Due HPV 9-valent (Gardisil) 9yo to less than 46yo Influenza Quadravalent, MDCK , 0.5ml, preservative free (Flucelvax) 6mo and older 06/29/2019 Tdap Tetanus diptheria acell ular pertussis (Boostrix; Adacel) 7yo and older 03/07/2021 Surgical History Surgery Date Site/Laterality Comments OTHER SURGICAL HISTORY PROCEDURE: DENIES PREVIOUS SURGERY Medical History Medical History Date Comments Anemia DX:Anemia Homelessness 08/22/2019 DX:Homelessness; COMMENT: As per ACO Tracking List 05/2019, noted in 06/29/2019 progress note. Family History Medical History Relation Name Comments No Known Problems Father No Known Problems Mother Breast cancer Neg Hx Colon cancer Neg Hx Ovarian cancer Neg Hx Relation Name Status Comments Daughter Joann Alive Father Alive Mother Alive Son Francisco J Alive Social History Tobacco Use Types Packs/Day Years Used Date Smoking Tobacco: Never Smokeless Tobacco: Never Alcohol Use Standard Drinks/Week Comments No 0 (1 standard drink = 0.6 oz pur e alcohol) Comments Unknown Sex and Gender Information Value Date Recorded Sex Assigned at Not on file Legal Sex Female 11:56 AM EST Gender Identity Not on file Sexual Orientation Not on file Obstetrics History Last Filed Vital Signs Vital Sign Reading Time Taken Comments Blood Pressure 115/73 03/28/2024 2:13 PM EDT Sitting L Arm Pulse 84 03/28/2024 2:13 PM EDT Temperature - - Respiratory Rate - - Oxygen Saturation - - Inhaled Oxygen Concentration - - Weight 76.3 kg (168 lb 3.2 oz) 03/28/2024 2:13 PM EDT Height 167.6 cm (5' 6 ) 03/28/2024 2:13 PM EDT Body Mass Index 27.15 03/28/2024 2:13 PM EDT Plan of Treatment Health Maintenance Due Date Last Done Comments Hepatitis B Vaccines (1 of 3 - 19+ 3-dose series) 2013 HPV Vaccines (2 - 3-dose series) 07/27/2019 06/29/20 Depression Screening 06/27/2022 06/29/2019 HIV Screening 06/27/2022 Hepatitis C Screening 06/27/2022 Social Influencers of Health Screening 06/27/2022 COVID-19 Vaccine (1 - 2023-2 5 season) 2024 Cervical Cancer Screening: HPV 05/25/2024 05/25/2019 Influenza Vaccine (Season Ended) 2025 06/29/20 19 Cholesterol Screening (Lipid Panel) 03/05/2027 03/05/2022 DTaP,Tdap,and Td Vaccines (2 - Td or Tdap) 03/07/2031 03/07/2021 HIB Vaccines Aged Out No longer eligi ble based on patient's age to complete this topic Hepatitis A Vaccines Aged Out No long er eligible based on patient's age to complete this topic IPV Vaccines Aged Out No longer eligi ble based on patient's age to complete this topic MMR Vaccines Aged Out No longer eligi ble based on patient's age to complete this topic Meningococcal ACWY Vaccine Aged Out N o longer eligible based on patient's age to complete this topic Meningococcal B Vaccine Aged Out No l onger eligible based on patient's age to complete this topic Pneumococcal Vaccine: Pediat rics (0 to 5 Years) and At-Risk Patients (6 to 64 Years) Aged Out No longer eligi ble based on patient's age to complete this topic RSV Immunization Patients Un nettie 20 months Aged Out No longer eligible b ased on patient's age to complete this topic Varicella Vaccines Aged Out No longer eligible based on patient's age to complete this topic Procedures Procedure Name Priority Date/Time Associated Diagnosis Comments LIPID PANEL Routine 03/05/2022 DEPRESSION SCREENING Routine 06/29/2019 HPV Routine 05/25/2019 from Last 3 Months or Most Recently Relevant to Health Maintenance Results * Lipid panel (03/05/2022) Pathologist [facility] [place] LDL/HDL Ratio 4 0 - 4 Triglycerides 125 0 - 150 mg/dL Cholesterol 162 0 - 200 mg/dL HDL 41 >=40 mg/dL LDL Cholesterol 96 0 - 100 mg/dL Blood Venous blood specimen / Unknown Historical Provider LAB BLOOD ORDERABLES Ginny l Result * Depression Screening (06/29/2019) Pathologist Pending sale to [facility] Depression Screening Abstracted [facility] Provider HEALTH MAINTENANCE Final Result * Cervical Cancer Screening: HPV (05/25/2019) Pathologist Pending sale to [facility] Cervical Cancer Screening: HPV Abstracted ,negative Historical Provider HEALTH MAINTENANCE Final Result from Last 3 Months or Most Recently Relevant to Health Maintenance Insurance [facility] [employer] Care Teams Factory Representative Relationship Specialty Start Date End Date Elizabeth Morse MD [address] [id number] PCP - General Internal Medicine 08/21/20
--- NOTE | 2024-11-13 03:15 | ED.ABDPAIN ---
HPI - Abdominal Pain General Chief Complaint: Abdominal Pain Stated Complaint: abd pain Time Seen by Provider: 11/13/24 03:10 Source: patient Mode of arrival: ambulatory Limitations: no limitations History of Present Illness ED Provider: HPI narrative: Patient no significant past medical history noticed sudden onset of pain in right lower abdomen started at midnight associated with nausea and vomiting no fever no chills no urinary symptoms patient never had similar pain in the past Related Data Previous Rx's ?Medication ?Instructions ?Recorded amoxicillin 500 mg capsule 500 mg PO BID 7 days #14 caps 01/24/21 amoxicillin 875 mg-potassium 1 tab PO BID #20 tabs 04/05/21 clavulanate 125 mg tablet (Augmentin) dexamethasone 6 mg tablet 6 mg PO DAILY #7 tabs 04/05/21 (Decadron) cyclobenzaprine 5 mg tablet 5 mg PO Q8H #10 tabs 01/11/24 lidocaine 5 % topical patch 1 patch topical DAILY #15 ea 01/11/24 (Lidoderm) naproxen 500 mg tablet 500 mg PO Q8-12H PRN pain (scale 01/11/24 score 1-3) #20 tabs omeprazole 20 mg capsule,delayed 20 mg PO DAILY #14 caps 04/01/24 release ondansetron HCl 4 mg tablet 4 mg PO Q8H PRN nausea and 10/14/24 vomiting #10 tabs Allergies Allergy/AdvReac Type Severity Reaction Status Date / Time No Known Allergies Allergy Verified 11/13/24 02:46 Review of Systems Review of Systems Yes all other systems are reviewed and are negative PMFSH Past Medical History Medical History Asthma No known health problems Social History Social History Unable to assess alcohol history related to: Unknown Patient Tobacco Use Status: Never used Tobacco Smoked in Last 30 Days: No Use of substances other than those prescribed or required for medical reasons: No Advance Directives: No Advance Directives Information Provided: Yes Patient : No Physical Exam ED Vital Signs: Vital Signs - 24 hr 11/13/24 02:42 11/13/24 03:29 11/13/24 03:59 Temperature 98.2 F Pulse Rate 91 Respiratory Rate 20 16 16 Blood Pressure 119/85 Pulse Oximetry 98 Oxygen Delivery Method Room Air 11/13/24 06:23 Temperature 98.0 F Pulse Rate 77 Respiratory Rate 16 Blood Pressure 99/55 L Pulse Oximetry 100 Oxygen Delivery Method Room Air BMI result Body Mass Index 27.5 Appearance: Alert. Oriented X3. No acute distress. Eyes: PERRLA, No Nystagmus ENT: Pharynx normal. Oral Mucosa moist Neck: Normal inspection. Neck supple. CVS: Normal heart rate and rhythm. Pulses normal. Respiratory: No respiratory distress. Equal air entry bilateral, no wheezing/rales/rhonchi Abdomen: Soft and tenderness right lower quadrant with guarding no rebound tenderness Bowel sounds are present, no mass palpable, no CVA tenderness Skin: Skin warm and dry. Normal skin color. Normal skin turgor. Extremities: No lower extremity edema. No calf tenderness Neuro: Oriented X 3. No motor deficit. No sensory deficit.No cerebellar signs , cranial nerves II-XII intact Medical Decision Making Medical Decision Making MDM Narrative: Patient has acute onset of right lower quadrant with nausea and vomiting normal WBC count and labs CT scan showed 8 mm prominent appendix with no surrounding inflammatory changes patient is feeling much comfortable after pain medication but still having the pain with deep tenderness on palpation. Case discussed Dr. Ceron who has seen the report of the CT scan does not think that patient has a appendicitis will come and evaluate the patient in the ER Differential Diagnosis Differential Diagnoses: The differential diagnosis associated with the presentation includes Appendicitis/ovarian cyst/diverticulitis/UTI/needle core Admission/Observation Consideration of admission/observation: Escalation of care including admission/observation considered Lab Data [facility] Lab Attestation statement: I reviewed the patient's lab results. 11/13/24 02:59 11/13/24 02:59 Labs: Lab Results 11/13/24 11/13/24 11/13/24 Range/Units 02:59 03:34 03:35 WBC 8.2 (4.8-10.8) X10*3/uL RBC 4.58 (4.20-5.50) X10*6/uL Hgb 11.2 L (12.0-16.0) g/dl Hct 35.3 L (37.0-47.0) % MCV 77.1 L (80.0-98.0) fL MCH 24.5 L (27.0-33.0) pg MCHC 31.7 (31.0-35.0) g/dl RDW 14.6 (11.0-16.0) % Plt Count 276 (160-400) X10*3/uL MPV 11.7 (9.4-12.3) fL Immature Gran % (Auto) 0.2 (0.0-0.4) % Neut % (Auto) 58.4 (45-73) % Lymph % (Auto) 30.6 (20-40) % [place] % (Auto) 7.4 (2-11) % Eos % (Auto) 2.8 (0-4) % Baso % (Auto) 0.6 (0-2) % Lymph # (Auto) 2.5 (1.2-4.9) X10*3/uL [place] # (Auto) 0.6 (0.1-1.2) X10*3/uL Eos # (Auto) 0.2 (0.0-0.4) X10*3/uL Baso # (Auto) 0.1 (0.0-0.2) X10*3/uL Abs Immat Gran (auto) 0.02 (0.00-0.03) X10*3/uL Absolute Neuts (auto) 4.8 (2.0-8.3) x10*3/uL Absolute Nucleated RBC 0.000 (0.0-0.012) X10*3/uL Nucleated RBC % (auto) 0.0 (0.0-0.2) /100WBC Sodium 140 (135-145) mmol/L Potassium 3.8 (3.3-5.1) mmol/L Chloride 109 H (96-108) mmol/L Carbon Dioxide 24 (22-29) mmol/L Anion Gap 11 L (12-20) BUN 10 (9-16) mg/dL Creatinine 0.75 (0.5-1.4) mg/dL Estim Creat Clear Calc 107.0 Estimated GFR > 60 Fasting Glucose 102 H (60-99) mg/dL Calcium 9.2 (8.4-10.2) mg/dL Total Bilirubin 0.3 (0.0-1.0) mg/dL AST 18 (5-31) U/L ALT 22 (0-31) U/L Alkaline Phosphatase 62 (39-117) U/L C-Reactive Protein 0.13 (< or = 0.50) mg/dL Total Protein 7.6 (6.5-8.0) g/dL Albumin 4.3 (3.5-5.0) g/dL Lipase 53 (8-78) U/L Urine Color Yellow Urine Appearance Clear Urine pH 6.0 (5.0-9.0) Ur Specific [place] >= 1.030 H (1.005-1.025) Urine Protein Negative (Neg-Trace) mg/dL Urine Glucose (UA) Negative (Negative) mg/dL Urine Ketones Trace (Negative) mg/dL Urine Blood Negative (Negative) Urine Nitrite Negative (Negative) Ur Leukocyte Esterase Negative (Negative) Urine RBC 0-2 (0-2) /HPF Urine WBC 0-5 (0-5) /HPF Ur Squamous Epith Cells 0-2 (0-2) /HPF Urine Bacteria None Seen (None Seen) Hyaline Casts 0-2 (0-2) /LPF Urine Test NEGATIVE (NEGATIVE) Independent Interpretation I performed an independent interpretation of an: CT Scan Radiology Impression Discussion of test interpretation with radiology: I have reviewed the radiologist's reading. Radiologist Impression: IMPRESSION: Prominent 8 mm appendix without secondary features of appendicitis. If high clinical index of suspicion for appendicitis, follow-up CT with oral and IV contrast suggested. Small to moderate amount of free pelvic fluid, most often ovulatory in this age group. No bowel obstruction. Uncomplicated cholelithiasis. Bilateral nephrolithiasis without obstructing stones or hydronephrosis. This document has been electronically signed by: Raj Elena MD on 11/13/2024 05:15:08 Medications Administered Discontinued Medications Generic Name Dose Route Start Last Admin Trade Name Freq PRN Reason Stop Dose Admin Sodium Chloride 1,000 mls @ 999 mls/hr 11/13/24 03:19 11/13/24 05:10 Ns IV 11/13/24 04:19 Infused .Q1H1M ONE Infusion Morphine Sulfate 4 mg 11/13/24 03:19 11/13/24 03:29 Morphine Sulfate 4 Mg/Ml Cartridge IVPUSH 11/13/24 03:20 4 mg ONCE ONE Administration Protocol Ondansetron HCl 4 mg 11/13/24 03:19 11/13/24 03:29 Ondansetron Hcl 4 Mg/2 Ml Vial IVPUSH 11/13/24 03:20 4 mg ONCE ONE Administration Discharge Plan Discharge Clinical Impression: Abdominal pain Patient Disposition: Still a Patient Prescriptions: No Action amoxicillin 500 mg capsule 500 mg PO BID 7 Days Qty: 14 0RF dexamethasone [Decadron] 6 mg tablet 6 mg PO DAILY Qty: 7 0RF amoxicillin-pot clavulanate [Augmentin] 875-125 mg tablet 1 tab PO BID Qty: 20 0RF cyclobenzaprine 5 mg tablet 5 mg PO Q8H Qty: 10 0RF naproxen 500 mg tablet 500 mg PO Q8-12H PRN (Reason: pain (scale score 1-3)) Qty: 20 0RF lidocaine [Lidoderm] 5 % adhesive patch,medicated 1 patch topical DAILY Qty: 15 0RF Rx Instructions: leave on most painful area for up to 12 hrs omeprazole 20 mg capsule,delayed release(DR/EC) 20 mg PO DAILY Qty: 14 0RF ondansetron HCl 4 mg tablet 4 mg PO Q8H PRN (Reason: nausea and vomiting) Qty: 10 0RF Print Language: Persian
[2024-11-13 03:18] LABS: Alanine Aminotransferase 22 U/L (0-31); Albumin Level 4.3 g/dL (3.5-5.0); Alkaline Phosphatase 62 U/L (39-117); Anion Gap 11 (12-20); Aspartate Amino Transferase 18 U/L (5-31); Bilirubin Total 0.3 mg/dL (0.0-1.0); Blood Urea Nitrogen 10 mg/dL (9-16); Calcium 9.2 mg/dL (8.4-10.2); Carbon Dioxide 24 mmol/L (22-29); Chloride 109 mmol/L (96-108); Estimated Glomerular Filt Rate > 60; Glucose Fasting 102 mg/dL (60-99); Lipase 53 U/L (8-78); Potassium 3.8 mmol/L (3.3-5.1); Sodium 140 mmol/L (135-145); Total Protein 7.6 g/dL (6.5-8.0)
[2024-11-13] MEDS: Morphine Sulfate 4 MG/ML CARTRIDGE IVPUSH (03:29)
[2024-11-13] MEDS: ondansetron HCL 4 MG/2 ML VIAL IVPUSH (03:29)
[2024-11-13] MEDS: 0.9 % Sodium Chloride 1,000 ML 999 ML IV (03:30)
[2024-11-13 03:42] LABS: Appearance Urine Clear; Color Urine Yellow; Glucose Urine UA Negative (Negative); Leukocyte Esterase Urine Negative (Negative); Nitrite Urine Negative (Negative); Specific Gravity - Urine >= 1.030 (1.005-1.025); Urine Blood Negative (Negative); Urine Ketones Trace mg/dL (Negative); Urine Protein Negative (Neg-Trace)
[2024-11-13 03:43] LABS: UPreg QC Valid YES; Urine Pregnancy NEGATIVE (NEGATIVE)
[2024-11-13 03:44] LABS: Bacteria Urine None Seen (None Seen); Hyaline Casts Urine 0-2 /LPF (0-2); RBC Urine 0-2 /HPF (0-2); Squamous Epithelial Cell Urine 0-2 /HPF (0-2); WBC Urine 0-5 /HPF (0-5)
[2024-11-13 05:51] LABS: C Reactive Protein 0.13 mg/dL (< or = 0.50)
--- NOTE | 2024-11-13 07:22 | PC.NURSE ---
Resting queitly. skin pwd. unlabored resp. no active vomiting. aware of need for surgical consult and NPO status. moist mm. NAD.
--- NOTE | 2024-11-13 09:40 | PM.HPGS ---
History of Present Illness History of Present Illness Date of Service: 11/13/24 <Gloria Godoy PA-C - Last Filed: 11/13/24 09:52> 11/13/24 <Farrukh Ceron MD - Last Filed: 11/13/24 11:54> Chief complaint: abd pain <Gloria Godoy PA-C - Last Filed: 11/13/24 09:52> Narrative: Gunjan Acuna is a 29 year old female with no significant past medical history who presented to the ED with complaints of RLQ abd pain. She was in her normal state of health when she developed sudden onset of pain in right lower abdomen last last night. She felt a little bloated and thought she was constipated. She went to the bathroom and had a small BM without improvement in the pain. She then developed nausea and vomiting. She denies prior episodes of similar pain.She denies fever, chills, dysuria, vaginla discharge, diarrhea, sick contacts. LMP 330. Work up in the ED included CBC, BMP, LFTs which WNL. CT scan showed prominent appendix measuring up to 8 mm, air distended, no apparent wall thickening or infiltration of the periappendiceal fat. Small to moderate amount of free pelvic fluid. Pelvic US showed no torsion, Corpus luteal cyst right ovary. She feels a little better this morning. No further nausea/vomiting. <Gloria Godoy PA-C - Last Filed: 11/13/24 09:52> Review of Systems Review of Systems: Yes all other systems are reviewed and are negative <Gloria Godoy PA-C - Last Filed: 11/13/24 09:52> [facility] Past Medical History Medical History: Medical History Asthma No known health problems <Gloria Godoy PA-C - Last Filed: 11/13/24 09:52> Social History Social History: Social History Unable to assess alcohol history related to: Unknown Patient Tobacco Use Status: Never used Tobacco Smoked in Last 30 Days: No Use of substances other than those prescribed or required for medical reasons: No Advance Directives: No Advance Directives Information Provided: Yes Patient : No <Gloria Godoy PA-C Last Filed: 11/13/24 09:52> Meds Allergies/Adverse reactions: Allergies Allergy/AdvReac Type Severity Reaction Status Date / Time No Known Allergies Allergy Verified 11/13/24 02:46 <BETH Schultz Last Filed: 11/13/24 09:52> Active Medications: Current Medications Acetaminophen (Acetaminophen 325 Mg Tablet) 650 mg PO Q6H PRN PRN Reason: Pain, Mild 1-3,fever,headache Calcium Carbonate (Calcium Carbonate 750 Mg Tab.Chew) 750 mg PO Q4H PRN PRN Reason: Heartburn Melatonin (Melatonin 3 Mg Tablet) 6 mg PO BEDTIME PRN PRN Reason: Insomnia Sodium Chloride (0.9 % Sodium Chloride Flush 3 Ml Syringe) 3 ml IVFLUSH QSHIFT [facility] <Gloria Godoy PA-C Last Filed: 11/13/24 09:52> Physical Exam Vital Signs: Vital Signs: Last Vital Signs Temp 98 F 11/13/24 09:13 Pulse 76 11/13/24 09:13 Resp 16 11/13/24 09:13 BP 105/64 11/13/24 09:13 Pulse Ox 100 11/13/24 09:13 O2 Del Method Room Air 11/13/24 09:13 BMI result Body Mass Index 27.5 <BETH Schultz Last Filed: 11/13/24 09:52> Const: General: comfortable, no acute distress and alert <BETH Schultz Last Filed: 11/13/24 09:52> Orientation/consciousness: patient oriented x3 <BETH Schultz Filed: 11/13/24 09:52> Resp: Effort & Inspection: normal respiratory effort <BETH Schultz Filed: 11/13/24 09:52> GI: Inspection: Yes normal to inspection and No distended <BETH Schultz Last Filed: 11/13/24 09:52> Palpation (GI): Soft to palpation, Tenderness to palpation present (GI) (mild diffuse tenderness) Rovsing's sign negative, no guarding and not rigid <Gloria Godoy PA-C Last Filed: 11/13/24 09:52> Percussion: Yes normal to percussion <Gloria Godoy PA-C Last Filed: 11/13/24 09:52> Skin: General skin exam: no rashes or lesions noted <BETH Schultz Last Filed: 11/13/24 09:52> Neuro: General: patient oriented x3 and moves all extremities <BETH Schultz Last Filed: 11/13/24 09:52> Results Results Labs: Short CBC 11/13/24 Range/Units 02:59 WBC 8.2 (4.8-10.8) X10*3/uL Hgb 11.2 L (12.0-16.0) g/dl Hct 35.3 L (37.0-47.0) % Plt Count 276 (160-400) X10*3/uL BMP 11/13/24 02:59 Sodium 140 Potassium 3.8 Chloride 109 H Carbon Dioxide 24 BUN 10 Creatinine 0.75 Calcium 9.2 Liver Function 11/13/24 Range/Units 02:59 Total Bilirubin 0.3 (0.0-1.0) mg/dL AST 18 (5-31) U/L ALT 22 (0-31) U/L Alkaline Phosphatase 62 (39-117) U/L Albumin 4.3 (3.5-5.0) g/dL Urine 11/13/24 11/13/24 Range/Units 03:34 03:35 Urine Color Yellow Urine Appearance Clear Urine pH 6.0 (5.0-9.0) Ur Specific [place] >= 1.030 H (1.005-1.025) Urine Protein Negative (Neg-Trace) mg/dL Urine Glucose (UA) Negative (Negative) mg/dL Urine Test NEGATIVE (NEGATIVE) <BETH Schultz Last Filed: 11/13/24 09:52> Abdomen CT scan report/results: report reviewed and image reviewed <BETH Schultz Last Filed: 11/13/24 09:52> US - pelvic: report reviewed <BETH Schultz Last Filed: 11/13/24 09:52> Assessment and Plan (1) Abdominal pain: Status: Acute <Gloria Godoy PA-C - Last Filed: 11/13/24 09:52> Describes having pain on the left lower quadrant, right lower quadrant and right upper quadrant since last night One episode of vomiting No diarrhea No fever No dysuria Abdomen is soft, no guarding, no rebound, mild tenderness on the left upper quadrant right lower quadrant and right upper quadrant She does not feel she will be able to go home with this pain and tenderness We will therefore observe Unlikely to be acute appendicitis based on clinical findings Seen and examined independently <Farrukh Ceron MD - Last Filed: 11/13/24 11:54> 29 year old female with no significant past medical history presenting with RLQ abd pain and prominent appendix on imaging without wall thickening or surrounding inflammatory changes. No leukocytosis or fevers. She is overall well appearing and her abdomen is benign and only mildly tender throughout. Overall picture not suggestive of acute appendicitis. In view of persistent pain, will admit for observation and serial abdominal exams. Can have clear liquids for now and advance as tolerated. Patient comfortable with plan. <Gloria Godoy PA-C - Last Filed: 11/13/24 09:52> Quality Stroke Does the patient have a stroke diagnosis?: No <Gloria Godoy PA-C - Last Filed: 11/13/24 09:52> VTE Prior VTE?: No <Gloria Godoy PA-C - Last Filed: 11/13/24 09:52> VTE Risk Level:: Medical - low <Gloria Godoy PA-C - Last Filed: 11/13/24 09:52> VTE Device Contraindication: N/A - Device Ordered <Gloria Godoy PA-C - Last Filed: 11/13/24 09:52> VTE Drug Contraindication: Treatment Not Indicated <Gloria oGdoy PA-C - Last Filed: 11/13/24 09:52> Procedures Date of Service Date of Service: 11/13/24 <Gloria Godoy PA-C - Last Filed: 11/13/24 09:52> 11/13/24 <Farrukh Ceron MD - Last Filed: 11/13/24 11:54>
--- NOTE | 2024-11-13 09:40 | PC.NURSE ---
resting quietly. NAD.
[2024-11-13] MEDS: oxyCODONE HCl Immed Release 5 MG TABLET PO (10:35)
[2024-11-13] MEDS: Lactated Ringers 1,000 ML 80 ML IVCONT ×2 (10:35→22:34)
--- NOTE | 2024-11-13 10:36 | PC.NURSE ---
ambulatory to BR w/o diff. states LLQ pain increasing again. also coccyx pain. no bruising, swelling, distention noted. Aware of plan for transfer to floor. NAD> no n/v
--- NOTE | 2024-11-13 11:54 | PHA.MEDREC ---
Pharmacy Consult ? Medication Reconciliation Pharmacy has completed the medication reconciliation. Spoke with patient, she states she takes no medications
--- NOTE | 2024-11-13 13:25 | PC.NURSE ---
Assumed care of this patient upon transfer to [facility]. Patient resting quietly in bed, VSS, denies pain at this time, currently waiting for bed assignment.
--- NOTE | 2024-11-13 15:54 | PM.EVENT ---
Event Note Date of Service: 11/13/24 Event Note: seen on afternoon ffup she says her pain is less hungry and wants food stable Vs abd soft, mild tenderness on same areas US shows ovarian cysts on both left and right clinically not acute appendicitis she looks well Time Spent With Patient Time: Total time managing care of this patient today ____ minutes.
[2024-11-13] MEDS: Docusate Sodium 100 MG CAPSULE PO (18:55)
[2024-11-14 03:48] VITALS: BP 120/63; PULSE 84; RESP 16; TEMP 36.1; O2SAT 96
--- NOTE | 2024-11-14 07:41 | P.PNGS_ITS ---
Subjective Subjective Date of Service: 11/14/24 <Gloria Godoy PA-C - Last Filed: 11/14/24 07:44> 11/14/24 <Farrukh Ceron MD - Last Filed: 11/14/24 08:14> Interval history: Feels improved. Denies abd pain. Tolerating solid diet without nausea or vomiting. OOB and ambulating to bathroom. <Gloria Godoy PA-C - Last Filed: 11/14/24 07:44> Physical Exam 2 Vital Signs: Vital Signs: Last Vital Signs Temp 96.9 F 11/14/24 03:48 Pulse 84 11/14/24 03:48 Resp 16 11/14/24 03:48 BP 120/63 11/14/24 03:48 Pulse Ox 96 11/14/24 03:48 O2 Del Method Room Air 11/14/24 03:48 BMI result Body Mass Index 27.5 <Gloria Godoy PA-C - Last Filed: 11/14/24 07:44> Const: General: comfortable, no acute distress and alert <Gloria Godoy PA-C - Last Filed: 11/14/24 07:44> Orientation/consciousness: patient oriented x3 <Gloria Godoy PA-C - Last Filed: 11/14/24 07:44> Resp: Effort & Inspection: normal respiratory effort <Gloria Godoy PA-C - Last Filed: 11/14/24 07:44> GI: Other: very mild b/l lower abdominal tenderness to deep palpation <Gloria Godoy PA-C - Last Filed: 11/14/24 07:44> Inspection: No distended <Gloria Godoy PA-C - Last Filed: 11/14/24 07:44> Palpation (GI): Soft to palpation and no guarding <BETH Schultz Last Filed: 11/14/24 07:44> Skin: General skin exam: no rashes or lesions noted <BETH Schultz Last Filed: 11/14/24 07:44> Neuro: General: patient oriented x3 and moves all extremities <BETH Schultz Last Filed: 11/14/24 07:44> Objective Data Active Medications Acetaminophen (Acetaminophen 325 Mg Tablet) 650 mg PO Q6H PRN PRN Reason: Pain, Mild 1-3,fever,headache Calcium Carbonate (Calcium Carbonate 750 Mg Tab.Chew) 750 mg PO Q4H PRN PRN Reason: Heartburn Docusate Sodium (Docusate Sodium 100 Mg Capsule) 100 mg PO BID [facility] Last Admin: 11/13/24 18:55 Dose: 100 mg Documented By: JUD Lactated Ringer's (Lr) 1,000 mls @ 80 mls/hr IVCONT .[id number] [facility] Last Admin: 11/13/24 22:34 Dose: 80 mls/hr Documented By: JUD Magnesium Hydroxide (Milk Of Magnesia 30 Ml Oral.Susp) 30 ml PO DAILY PRN PRN Reason: Constipation Melatonin (Melatonin 3 Mg Tablet) 6 mg PO BEDTIME PRN PRN Reason: Insomnia Morphine Sulfate (Morphine Sulfate 4 Mg/Ml Cartridge) 4 mg IVPUSH Q4H PRN; Protocol PRN Reason: Pain, Severe (Pain Scale 7-10) Ondansetron HCl (Ondansetron Hcl 4 Mg/2 Ml Vial) 4 mg IVPUSH Q8H PRN PRN Reason: Nausea and Vomiting Oxycodone HCl (Oxycodone Hcl Immed Release 5 Mg Tablet) 5 mg PO Q6H PRN PRN Reason: Pain, Moderate(Pain Scale 4-6) Last Admin: 11/13/24 10:35 Dose: 5 mg Documented By: ÁLVARO Polyethylene Glycol (Polyethylene Glycol 3350 17 Gm Powd.Pack) 17 gm PO DAILY PRN PRN Reason: Constipation Sodium Chloride (0.9 % Sodium Chloride Flush 3 Ml Syringe) 3 ml IVFLUSH QSHIFT [facility] Last Admin: 11/13/24 21:06 Dose: Not Given Documented By: JUD Non-Admin Reason: IV Running <Gloria Godoy PA-C - Last Filed: 11/14/24 07:44> Labs CBC & Chem 7: 11/13/24 02:59 11/13/24 02:59 <Gloria Godoy PA-C - Last Filed: 11/14/24 07:44> Procedures Date of Service Date of Service: 11/14/24 <Gloria Godoy PA-C - Last Filed: 11/14/24 07:44> 11/14/24 <Farrukh Ceron MD - Last Filed: 11/14/24 08:14> Progress Note: A&P Assessment and plan (1) Abdominal pain: Status: Acute <Gloria Godoy PA-C - Last Filed: 11/14/24 07:44> Assessment and Plan: She feels much better She looks well Says pain has resolved Eating breakfast now Abdomen is soft, benign, nontender Okay to DC home today Seen and examined independently <Farrukh Ceron MD - Last Filed: 11/14/24 08:14> Assessment and Plan: Abdominal pain resolved. Tolerating solid food. Hemodynamically stable and afebrile. Abd exam improved this morning with less tenderness, continues without peritoneal signs. Feels ready for dc, stable for dc to home today with f/u with PCP. <Gloria Godoy PA-C - Last Filed: 11/14/24 07:44> Time Spent With Patient Time: Total time managing care of this patient today ____ minutes. <Gloria Godoy PA-C - Last Filed: 11/14/24 07:44> Quality Stroke Does the patient have a stroke diagnosis?: No <Gloria Godoy PA-C - Last Filed: 11/14/24 07:44> VTE Prior VTE?: No <Gloria Godoy PA-C - Last Filed: 11/14/24 07:44> VTE Risk Level:: Medical - low <Gloria Godoy PA-C - Last Filed: 11/14/24 07:44> VTE Device Contraindication: N/A - Device Ordered <Gloria Godoy PA-C - Last Filed: 11/14/24 07:44> VTE Drug Contraindication: Treatment Not Indicated <Gloria Godoy PA-C - Last Filed: 11/14/24 07:44>
[2024-11-14 08:00] VITALS: BP 103/58; PULSE 81; RESP 15; TEMP 36.5; O2SAT 98
--- NOTE | 2024-11-14 09:19 | MHC.CM.PN ---
[facility] DELIVERED PT LIVES ALONE, EMPLOYED F/T AND FUNCTIONALLY INDEP. PT DECLINES COMPLETING A HCP AT THIS TIME. PCP DR. DEGROOT DP: PT HAS BEEN MEDICALLY CLEARED FOR DC HOME, NO SERVICES. PT HAS OWN RIDE HOME.
--- NOTE | 2024-11-14 09:20 | PM.DS ---
DS: Providers Provider Date of Service: 11/14/24 Date of admission: 11/13/24 10:37 Date of discharge: 11/14/24 Primary care physician: Elizabeth Morse MD Attending physician on admission: Farrukh Ceron Attending physician on discharge: Farrukh Ceron DS: Diagnosis Discharge Diagnosis (1) Abdominal pain: Status: Acute DS: Summary Hospital Course Hospital Course: HPI AT ADMISSION: Gunjan Acuna is a 29 year old female with no significant past medical history who presented to the ED with complaints of RLQ abd pain. She was in her normal state of health when she developed sudden onset of pain in right lower abdomen last last night. She felt a little bloated and thought she was constipated. She went to the bathroom and had a small BM without improvement in the pain. She then developed nausea and vomiting. She denies prior episodes of similar pain.She denies fever, chills, dysuria, vaginla discharge, diarrhea, sick contacts. LMP 330. Work up in the ED included CBC, BMP, LFTs which WNL. CT scan showed prominent appendix measuring up to 8 mm, air distended, no apparent wall thickening or infiltration of the periappendiceal fat. Small to moderate amount of free pelvic fluid. Pelvic US showed no torsion, Corpus luteal cyst right ovary. She feels a little better this morning. No further nausea/vomiting. HOSPITAL COURSE: Overall picture was suggestive of acute appendicitis as there was no appendiceal wall thickening or surrounding inflammatory changes, no leukocytosis or fevers. She was overall well appearing and her abdomen is benign and only mildly tender throughout. The patient had persistent severe pain and did not feel she was able to go home. She was admitted to the surgical service of persistent pain for observation and serial abdominal exams. She was started on clear liquids and then advanced to a solid diet later. Her pain improved and resolved. On the day of discharge, she felt improved without any abdominal pain. She was tolerating a solid diet without nausea or vomiting. Her abdomen remained benign, she was hemodynamically stable. She felt ready for discharge. She was discharged to home on 11/14/24 in stable condition. Status at Discharge Functional status at discharge: independent ambulation Overall status at discharge: patient is back to baseline Time Attestation Discharge Coordination Time (in mins): 25 Quality: Safe Use of Opioids Does Pt have an Active Cancer Diagnosis on the Problem List?: No Quality: Stroke Does the patient have a stroke diagnosis?: No Physical Exam Vital Signs: Vital Signs: Last Vital Signs Temp 97.7 F 11/14/24 08:00 Pulse 81 11/14/24 08:00 Resp 15 11/14/24 08:00 BP 103/58 L 11/14/24 08:00 Pulse Ox 98 11/14/24 08:00 O2 Del Method Room Air 11/14/24 08:00 BMI result Body Mass Index 27.5 Const: General: comfortable, no acute distress and alert Orientation/consciousness: patient oriented x3 Resp: Effort & Inspection: normal respiratory effort GI: Inspection: Yes normal to inspection and No distended Palpation (GI): Soft to palpation, Tenderness to palpation present (GI) (mild right and left LQ tenderness to deep palpation) with no rebound tenderness, no guarding and not rigid Neuro: General: patient oriented x3 Discharge Plan Discharge Anticipated Discharge Date/Time: 11/14/24 13:01 Patient Disposition: Home, Self-Care Discharge Diagnosis: abdominal pain Referrals: Elizabeth Morse MD [Primary Care Provider] - 1 Week Discharge Orders: Discharge Order (Routine); Ordered 11/14/24 Ordered By: Gloria Godoy Diet: Advance to usual diet Activity on Discharge: As tolerated Stand Alone Forms: Patient Portal Discharge page, Work/School Release Print Language: Ukrainian Activity Restrictions/Additional Instructions: Follow up with your PCP. Call Your Doctor If: ? ? -Your temperature exceeds 101? F? ? ? -You experience excessive abdominal pain or swelling ? ? -You have an unexpected reaction to medication ? ? -You experience continued vomiting/nausea Care Plan Goals: Return to baseline health and resume normal activities. Health Concerns: abdominal pain corpus luteal cysts Plan of Treatment: observation Assessment: Improved Discharge Date/Time: 11/14/24 09:06
== END 2024-11-14 09:06 | disposition home or self-care (01) ==
LOC: HO.ED 10:25 → HO.EDOVER 10:39 → HO.S3 17:52
PROVIDERS: Internal Medicine; Admitting Provider Physician Assistant Surgical; Emergency Provider Emergency Medicine Emergency Medical Services; PCP Internal Medicine; Visit Provider Physician Assistant Surgical
DX: R10.31 Right lower quadrant pain (principal); N83.11 Corpus luteum cyst of right ovary; R11.2 Nausea with vomiting, unspecified; K80.20 Calculus of gallbladder without cholecystitis without obstruction; N20.0 Calculus of kidney
CPT/HCPCS: 36415; 74176; 76830; 76856; 80053; 81001; 81025; 83690; 85025; 86140; 96361; 96374; 96375; 99221; 99285; J2270; J2405; J7120

== ENCOUNTER → 2024-11-13 03:20 | Outpatient (BNV) | payer OTHER, SELFPAY | PROVIDERS: Emergency Provider Internal Medicine; PCP Internal Medicine; Visit Provider Radiology Diagnostic Radiology | DX: R10.2 Pelvic and perineal pain (principal) | CPT/HCPCS: 74176; 76830; 76856; 93975 ==

== ENCOUNTER → 2024-11-13 10:37 | Outpatient (BNV) | payer OTHER, SELFPAY | PROVIDERS: Admitting Provider Physician Assistant Surgical; Emergency Provider Emergency Medicine Emergency Medical Services; PCP Internal Medicine; Visit Provider Surgery | DX: R10.9 Unspecified abdominal pain (principal) | CPT/HCPCS: 99222; 99238; 99499 ==